=== PATIENT | female | born 1990 | race Caucasian/White ===

== ENCOUNTER → 2016-04-20 | Outpatient (CLI) | payer OTHER, MEDICAID | LOC: OD 12:13 | PROVIDERS: ATTEND Midwife | DX: Z36 Encounter for antenatal screening of mother (principal) | CPT/HCPCS: 36415; 84163; 84702; 86336 ==

== ENCOUNTER 2016-06-10 19:24 | Emergency (ER) | payer OTHER, MEDICAID ==
--- NOTE | 2016-06-10 19:43 | ER Document Report ---
ED Medical Screen (RME) - General Stated Complaint: PAINFUL URINATION Time seen by provider: 19:41 Mode of Arrival: Ambulatory Information source: Patient Notes: 26-year-old female presents to ED for burning and pain and itching with urination. Burning started today itching for 3 days. She is 20 weeks 1 day . TRAVEL OUTSIDE OF THE [place] IN LAST 30 DAYS: No - Related Data Allergies/Adverse Reactions: No Known Allergies Allergy (Verified 01/06/15 14:11) Past Medical History Pulmonary Medical History: Reports: Hx Asthma - only in childhood - Immunizations Immunizations up to date: Yes Hx Diphtheria, Pertussis, Tetanus Vaccination: Yes Physical Exam - Vital signs Vitals: Temp Pulse Resp BP Pulse Ox 98.1 F 85 16 128/58 H 100 06/10/16 19:32 06/10/16 19:32 06/10/16 19:32 06/10/16 19:32 06/10/16 19:32 Course - Vital Signs Vital signs: Temp Pulse Resp BP Pulse Ox 98.1 F 85 16 128/58 H 100 06/10/16 19:32 06/10/16 19:32 06/10/16 19:32 06/10/16 19:32 06/10/16 19:32
[2016-06-10 20:24] LABS: APPEARANCE,URINE CLOUDY; BILIRUBIN,URINE NEGATIVE (NEGATIVE); GLUCOSE, URINE NEGATIVE (NEGATIVE); KETONES,URINE NEGATIVE (NEGATIVE); LEUKOCYTE ESTERASE,URINE LARGE (NEGATIVE); NITRITE,URINE NEGATIVE (NEGATIVE); PROTEIN,URINE 30 mg/dL (NEGATIVE)
[2016-06-10] MEDS ORDERED: CEPHALEXIN 500 MG CAPSULE PO ONE (21:29)
[2016-06-10] MEDS ORDERED: FLUCONAZOLE 100 MG TABLET PO ONE (21:29)
[2016-06-10] MEDS ORDERED: PHENAZOPYRIDINE HCL 200 MG TABLET PO ONE (21:30)
--- NOTE | 2016-06-10 21:32 | ER Document Report ---
ED GI/ - General Chief Complaint: Pain With Urination Stated Complaint: PAINFUL URINATION Time seen by provider: 21:30 Mode of Arrival: Ambulatory Notes: Patient is a 26-year-old female, at 20 weeks gestation, that comes emergency department for chief complaint of 3 days of painful urination. She states she is also started getting infection and has started to use Monistat but it did not seem to help. She denies any vaginal discharge, denies pelvic pain or cramping, she states she is feeling baby moving. Patient denies any vaginal bleeding. She denies nausea or vomiting, fever or chills. TRAVEL OUTSIDE OF THE [place] IN LAST 30 DAYS: No - Related Data Allergies/Adverse Reactions: No Known Allergies Allergy (Verified 06/10/16 19:41) Past Medical History - General Information source: Patient - Social History Smoking Status: Never Smoker Chew tobacco use (# tins/day): No Frequency of alcohol use: None Drug Abuse: None Lives with: Family Family History: None, Reviewed & Not Pertinent Patient has suicidal ideation: No Patient has homicidal ideation: No Pulmonary Medical History: Reports: Hx Asthma - only in childhood Renal/ Medical History: Denies: Hx Peritoneal Dialysis Surgical Hx: Negative - Immunizations Immunizations up to date: Yes Hx Diphtheria, Pertussis, Tetanus Vaccination: Yes Review of Systems - Review of Systems Constitutional: No symptoms reported EENT: No symptoms reported Cardiovascular: No symptoms reported Respiratory: No symptoms reported Gastrointestinal: No symptoms reported Genitourinary: See HPI Female Genitourinary: See HPI Musculoskeletal: No symptoms reported Skin: No symptoms reported Hematologic/Lymphatic: No symptoms reported Neurological/Psychological: No symptoms reported Physical Exam - Vital signs Vitals: Temp Pulse Resp BP Pulse Ox 98.1 F 85 16 128/58 H 100 06/10/16 19:32 06/10/16 19:32 06/10/16 19:32 06/10/16 19:32 06/10/16 19:32 Interpretation: Normal - General General appearance: Appears well, Alert In distress: None - HEENT Head: Normocephalic, Atraumatic Eyes: Normal Conjunctiva: Normal Extraocular movements intact: Yes Eyelashes: Normal Pupils: PERRL Sinus: Normal Nasal: Normal Mouth/Lips: Normal Mucous membranes: Normal Pharynx: Normal Neck: Normal - Respiratory Respiratory status: No respiratory distress Chest status: Nontender Breath sounds: Normal Chest palpation: Normal - Cardiovascular Rhythm: Regular Heart sounds: Normal auscultation Murmur: No - Abdominal Inspection: Normal Distension: No distension Bowel sounds: Normal Tenderness: Nontender - Completely soft abdomen. No: Tender Organomegaly: No organomegaly - Back Back: Normal, Nontender. No: Tender - Extremities General upper extremity: Normal inspection, Nontender, Normal color, Normal ROM , Normal temperature General lower extremity: Normal inspection, Nontender, Normal color, Normal ROM , Normal temperature, Normal weight bearing. No: Celso's sign - Neurological Neuro grossly intact: Yes Cognition: Normal Orientation: AAOx4 [place] Coma Scale Eye Opening: Spontaneous Cristiano Coma Scale Verbal: Oriented Cristiano Coma Scale Motor: Obeys Commands [place] Coma Scale Total: 15 Speech: Normal Motor strength normal: LUE, RUE, LLE, RLE Sensory: Normal - Psychological Associated symptoms: Normal affect, Normal mood - Skin Skin Temperature: Warm Skin Moisture: Dry Skin Color: Normal Course - Re-evaluation Re-evalutation: Patient declines a pelvic examination, requests treatment for yeast infection, also reports dysuria, urine is somewhat contaminated but also suggestive of urinary tract infection. Urine cultured. Placing on Keflex, gave single dose of Diflucan, gave single dose of Pyridium, instructed to follow-up with REPRODUCTION ORDER PROCESSOR and return for any concerning or worsening symptoms including flank pain, vomiting, fever, etc. Patient states satisfaction and agreement. - Vital Signs Vital signs: Temp Pulse Resp BP Pulse Ox 97.4 F 68 16 112/68 99 06/10/16 22:04 06/10/16 22:04 06/10/16 22:04 06/10/16 22:04 06/10/16 22:04 - Laboratory Laboratory results interpreted by md: 06/10/16 19:45 Urine Protein 30 H Urine Blood SMALL H Urine Urobilinogen 2.0 H Ur Leukocyte Esterase LARGE H Discharge - Discharge Clinical Impression: Dysuria, Vaginal irritation Condition: Stable Disposition: HOME, SELF-CARE Additional Instructions: You have been treated for yeast infection, urinalysis also is consistent with a urinary tract infection, take Keflex as directed. Follow-up with your primary care. Return to emergency department for any concerning or worsening symptoms. Prescriptions: Cephalexin Monohydrate [Keflex 500 mg Capsule] 500 mg PO BID #10 capsule Referrals: ADRIEN HASSAN MD [Primary Care Provider] - Follow up as needed
[2016-06-10 22:05] VITALS: BP 112/68
== END 2016-06-10 22:04 | disposition home or self-care (01) ==
LOC: ER 19:24
DX: O26.892 Other specified pregnancy related conditions, second trimester (principal); R30.0 Dysuria; N89.8 Other specified noninflammatory disorders of vagina; Z3A.20 20 weeks gestation of pregnancy
CPT/HCPCS: 99283; 87086; 81001; J3490

== ENCOUNTER 2016-06-13 15:36 | Emergency (ER) | payer OTHER, MEDICAID ==
[2016-06-13 15:41] VITALS: BP 129/77
--- NOTE | 2016-06-13 15:43 | ER Document Report ---
ED Medical Screen (RME) - General Stated Complaint: VAGINAL DISCOMFORT Time seen by provider: 15:41 Mode of Arrival: Ambulatory Information source: Patient Notes: 26-year-old febrile presents to ED for vaginal discharge vaginal discomfort and urinary symptoms since last Saturday. He states she was seen here on Saturday. She states she was told that we will be doing a pelvic been one was not done. She is 20 weeks 4 days . 3 para 2 I have greeted and performed a rapid initial assessment of this patient. A comprehensive ED assessment and evaluation of the patient, analysis of test results and completion of medical decision making process will be conducted by an additional ED providers. TRAVEL OUTSIDE OF THE [place] IN LAST 30 DAYS: No - Related Data Allergies/Adverse Reactions: No Known Allergies Allergy (Verified 06/10/16 19:41) Past Medical History Pulmonary Medical History: Reports: Hx Asthma - only in childhood Renal/ Medical History: Denies: Hx Peritoneal Dialysis - Immunizations Immunizations up to date: Yes Hx Diphtheria, Pertussis, Tetanus Vaccination: Yes Physical Exam - Vital signs Vitals: Temp Pulse Resp BP Pulse Ox 98.2 F 99 20 129/77 H 97 06/13/16 15:40 06/13/16 15:40 06/13/16 15:40 06/13/16 15:40 06/13/16 15:40 Course - Vital Signs Vital signs: Temp Pulse Resp BP Pulse Ox 98.2 F 99 20 129/77 H 97 06/13/16 15:40 06/13/16 15:40 06/13/16 15:40 06/13/16 15:40 06/13/16 15:40
[2016-06-13 16:12] LABS: APPEARANCE,URINE CLEAR; BILIRUBIN,URINE NEGATIVE (NEGATIVE); GLUCOSE, URINE NEGATIVE (NEGATIVE); KETONES,URINE NEGATIVE (NEGATIVE); LEUKOCYTE ESTERASE,URINE TRACE (NEGATIVE); NITRITE,URINE POSITIVE (NEGATIVE); PROTEIN,URINE NEGATIVE (NEGATIVE); URINE SPECIFIC GRAVITY 1.012
--- NOTE | 2016-06-13 17:27 | ER Document Report ---
ED GI/ - General Chief Complaint: Urinary Frequency Stated Complaint: VAGINAL DISCOMFORT Time seen by provider: 17:23 Mode of Arrival: Ambulatory Information source: Patient Notes: 26-year-old female presents to ED for vaginal discharge with discomfort and urinary symptoms since Saturday. She states she was seen on Saturday she was told she was going get a pelvic but did not get one. She is 20 weeks and 4 days 3 para 2. TRAVEL OUTSIDE OF THE [place] IN LAST 30 DAYS: No - HPI Patient complains to provider of: Pelvic pain, , Vaginal discharge, Other - Frequency urgency and burning with urination Onset: Last week - Saturday Timing/Duration: Persistent Quality of pain: Burning, Pressure Severity at maximum: Moderate Severity in ED: Moderate Pain Level: 4 Location: Vaginal Vaginal bleeding (Compared to normal period): None Menstrual period history: : 3 Para: 2 Associated symptoms: Urinary frequency, Urinary urgency, Vaginal discharge, Other - Exacerbated by: Other - Urination Relieved by: Denies Similar symptoms previously: Yes Recently seen / treated by doctor: Yes - Related Data Allergies/Adverse Reactions: No Known Allergies Allergy (Verified 06/10/16 19:41) Past Medical History - General Information source: Patient - Social History Smoking Status: Never Smoker Cigarette use (# per day): No Chew tobacco use (# tins/day): No Smoking Education Provided: No Frequency of alcohol use: None Drug Abuse: None Occupation: [employer] Lives with: Family Family History: Arthritis, DM, Hyperlipidemia, Hypertension, Malignancy Patient has suicidal ideation: No Patient has homicidal ideation: No - Past Medical History Cardiac Medical History: Reports: None Pulmonary Medical History: Reports: Hx Asthma - only in childhood EENT Medical History: Reports: None Neurological Medical History: Reports: None Endocrine Medical History: Reports: None Renal/ Medical History: Reports: None Malignancy Medical History: Reports: None GI Medical History: Reports: None Musculoskeltal Medical History: Reports None Skin Medical History: Reports None Psychiatric Medical History: Reports: None Traumatic Medical History: Reports: None Infectious Medical History: Reports: None Surgical Hx: Negative Past Surgical History: Reports: None - Immunizations Immunizations up to date: Yes Hx Diphtheria, Pertussis, Tetanus Vaccination: Yes Review of Systems - Review of Systems Constitutional: No symptoms reported EENT: No symptoms reported Cardiovascular: No symptoms reported Respiratory: No symptoms reported Gastrointestinal: No symptoms reported Genitourinary: Frequency, Pain, Urgency Female Genitourinary: Vaginal discharge Musculoskeletal: No symptoms reported Skin: No symptoms reported Hematologic/Lymphatic: No symptoms reported Neurological/Psychological: No symptoms reported -: Yes All other systems reviewed and negative Physical Exam - Vital signs Vitals: Temp Pulse Resp BP Pulse Ox 98.2 F 99 20 129/77 H 97 06/13/16 15:40 06/13/16 15:40 06/13/16 15:40 06/13/16 15:40 06/13/16 15:40 Interpretation: Normal - General General appearance: Appears well, Alert - HEENT Head: Normocephalic, Atraumatic Eyes: Normal Pupils: PERRL - Respiratory Respiratory status: No respiratory distress Chest status: Nontender Breath sounds: Normal Chest palpation: Normal - Cardiovascular Rhythm: Regular Heart sounds: Normal auscultation Murmur: No - Abdominal Inspection: Normal Distension: No distension Bowel sounds: Normal Tenderness: Nontender Organomegaly: No organomegaly - Genitourinary External exam: Vesicles Speculum exam: Vaginal discharge - Yellowish-white Vaginal bleeding: None Bimanuel exam: Normal - Back Back: Normal, Nontender - Extremities General upper extremity: Normal inspection, Nontender, Normal color, Normal ROM , Normal temperature General lower extremity: Normal inspection, Nontender, Normal color, Normal ROM , Normal temperature, Normal weight bearing. No: Celso's sign - Neurological Neuro grossly intact: Yes Cognition: Normal Orientation: AAOx4 Cristiano Coma Scale Eye Opening: Spontaneous Crist[place] Coma Scale Verbal: Oriented [place] Coma Scale Motor: Obeys Commands Cristiano Coma Scale Total: 15 Speech: Normal Motor strength normal: LUE, RUE, LLE, RLE Sensory: Normal - Psychological Associated symptoms: Normal affect, Normal mood - Skin Skin Temperature: Warm Skin Moisture: Dry Skin Color: Normal Course - Re-evaluation Re-evalutation: 06/13/16 18:[address] Malcolm for this patient's genital herpes, UTI, bacterial vaginosis , and vaginal yeast infection. Patient will be treated with Rocephin and azithromycin for possible GC chlamydia, Flagyl for bacterial vaginosis, Macrobid for UTI, and acyclovir for genital herpes. Spoke with Dr. Au, OB/ CHIEF DRAFTER and he stated that she treat her with Terazol 7 for her vaginal candidiasis. - Vital Signs Vital signs: Temp Pulse Resp BP Pulse Ox 98.2 F 99 20 129/77 H 97 06/13/16 15:40 06/13/16 15:40 06/13/16 15:40 06/13/16 15:40 06/13/16 15:40 - Laboratory Laboratory results interpreted by me: 06/13/16 15:50 Urine Blood MODERATE H Urine Nitrite POSITIVE H Urine Urobilinogen 4.0 H Ur Leukocyte Esterase TRACE H Discharge - Discharge Clinical Impression: Genital herpes affecting in second trimester, Bacterial vaginosis, UTI (urinary tract infection) in in second trimester, Vagina, candidiasis Condition: Stable Disposition: HOME, SELF-CARE Additional Instructions: URINARY TRACT INFECTION: Your evaluation indicates that you have a urinary tract infection. This is due to germs growing in the bladder. This is a common problem. This infection usually responds quickly to antibiotics. Your antibiotic should be taken exactly as prescribed. Drink plenty of fluids -- three to four quarts a day. Occasionally, a bladder anesthetic will be prescribed to help stop the feeling of urgency until the antibiotic has a chance to clear the infection. This may cause your urine to be dark orange. Certain urine infections require a culture. If the doctor obtained a culture, the results will be back in two days. You should call to see if a change in treatment is needed. A repeat urinalysis after you finish treatment is often recommended. The physician will let you know if further testing is required. Call the doctor if you develop fever, chills, flank pain, inability to urinate, or blood in the urine. VAGINITIS: Your exam shows that you have vaginitis, a vaginal infection. The infection can be caused by a many different organisms, including trichomonas or Gardnerella. The usual symptoms are vaginal irritation and discharge. The treatment is usually antibiotics such as Flagyl. Laboratory tests can determine which germ is responsible. Use the medication as prescribed. Because this infection can be transmitted sexually, your sexual partner may need to be checked and treated also. If your physician has not discussed this with you, please check before resuming sexual relations. If a culture shows gonorrhea or chlamydia, the infection must be reported to the health department. Call the doctor if you develop pelvic pain, fever, or problems with urination, or if you don't improve as expected. VAGINOSIS, BACTERIAL: Your exam shows you have bacterial vaginosis. This condition is due to an overgrowth of bacteria in the vagina. Symptoms may include vaginal itching or pain, a smelly discharge, and sometimes burning with urination. Normally this is not transmitted by sexual contact. Vaginosis can be treated with oral or topical antibiotics. Metronidazole ( Flagyl) pills are usually effective. Topical vaginal creams include Cleocin and Metro-Gel. You should avoid sexual contact until your symptoms are all better. Call the doctor if you develop pelvic pain, fever, or problems with urination, or if you don't improve as expected. VAGINAL YEAST INFECTION: You have evidence of a yeast infection -- called "mateus." A vaginal yeast infection often causes itching and discharge. While not dangerous, it can be very unpleasant. A yeast infection often follows the use of powerful antibiotics. It is more likely to occur in diabetics. The treatment now is usually a single pill of Diflucan, but also an antifungal cream or suppository may be used for a few days. You do not need to avoid sexual intercourse. Recurrences are common. You can make a recurrence less likely by wearing cotton underwear and avoiding tight clothing. For mild recurrences, you can try [id number] creams or suppositories that are made specifically for yeast. If the symptoms do not resolve, you should follow up for re-examination. Sometimes treatment of the sexual partner is necessary if infections are recurrent. Genital Herpes Your exam suggests that you have a herpes infection. A culture can confirm the diagnosis. Herpes is caused by a virus, and can be transmitted sexually. After the initial infection has healed, the virus often erupts at the same location from time to time. Herpes can be treated with anti-viral medication. The medicine can be used as pills or ointment. It's most effective if started with the first symptoms of the attack. It is not a "cure" -- it simply shortens the length of the illness. If this is not your first attack, the medicine may not help you. In the female, herpes can infect the baby as it passes through the canal, causing a life-threatening disease. You should inform the wharf tally clerk that you've had herpes should you (or your spouse) become . Sexual contact should be avoided any time the sores are present, but the virus may be contagious even at other times. The use of condoms may help prevent infection in your partner. METRONIDAZOLE: Metronidazole (Flagyl) has been prescribed. This medication is used to kill a type of bacteria called anaerobes, and protozoan parasites such as trichomonas and Giardia. Flagyl often causes a metallic taste in the mouth and mild nausea. Do not use alcohol in any form with Flagyl (including alcohol in medication elixirs). Flagyl interacts with alcohol to cause flushing, palpitations, headache, stomach cramps, and vomiting. Do not use Flagyl if you are taking Antabuse (disulfiram). Call the doctor at once if you develop rash, shortness of breath, itching, or lightheadedness. NITROFURANTOIN (MACRODANTIN, MACROBID): You have received a prescription for nitrofurantoin (Macrodantin). This antibiotic is used for urinary tract infections. Women who are or nursing should notify the physician before taking this medicine. If you have ever had a problem caused by this medication in the past, be sure the physician is aware of it. Common side effects of this medicine include nausea, vomiting, or decreased appetite. Notify your physician if these side effects become severe. Immediately stop this medicine and call the physician if you develop cough , shortness of breath, chest pain, weakness, jaundice (yellow color of the skin and whites of the eyes), or a skin rash. Acyclovir Acyclovir (Zovirax) is used to treat infections caused by the Herpes family of viruses. It's available as capsules or ointment. Zovirax is most effective if started at the first sign of the viral outbreak. It can decrease the severity and duration of symptoms. However, it doesn't eliminate the virus from the body completely. If you're prone to repeated outbreaks of herpes, you'll continue to have attacks. Apply ointment with a disposable glove or finger-cot to avoid spreading the virus with your finger. If pills have been prescribed, take them for the full recommended course. Occasionally, mild nausea or headaches may occur. Call the doctor if you develop wheezing, itching, rash, shortness of breath , or lightheadedness. FOLLOW-UP CARE: If you have been referred to a physician for follow-up care, call the physician s office for an appointment as you were instructed or within the next two days. If you experience worsening or a significant change in your symptoms, notify the physician immediately or return to the Emergency Department at any time for re-evaluation. Please call your SEO EXPERT in the morning and inform her that you have a gentle herpes bacterial vaginosis and UTI in the vaginal yeast infection. I will be put you on Flagyl and Macrobid and acyclovir in your SEO EXPERT will need to treat your yeast infection sometime next week when the others are all cleared up. Prescriptions: Acyclovir [Acyclovir 400 mg Tablet] 400 mg PO TID #30 tablet Metronidazole [Flagyl 500 mg Tablet] 500 mg PO BID #20 tablet Nitrofurantoin/Nitrofuran Mac [Macrobid 100 mg Capsule] 1 tab PO BID #20 capsule Terconazole [Terazol 7] 45 gm VG DAILY 7 Days Forms: Return to Work Referrals: [facility] [Provider Group] - Follow up as needed
[2016-06-13 17:37] LABS: CHLAM PCR NOT DETECTED (NOT DETECT)
[2016-06-13] MEDS ORDERED: AZITHROMYCIN 250 MG TABLET PO ONE (17:43)
[2016-06-13] MEDS ORDERED: LIDOCAINE 1% INJ-PF (10 MG/ML) 30 ML SDV INJ ONE (17:43)
[2016-06-13] MEDS ORDERED: ACYCLOVIR 200 MG CAPSULE PO ONE (17:43)
[2016-06-13] MEDS ORDERED: CEFTRIAXONE INJ 250 MG VIAL IM ONE (17:43)
[2016-06-13] MEDS ORDERED: METRONIDAZOLE 500 MG TABLET PO ONE (17:43)
[2016-06-13] MEDS ORDERED: NITROFURANTOIN MONOHYD/M-CRYST 100 MG CAPSULE PO ONE (17:43)
== END 2016-06-13 18:37 | disposition home or self-care (01) ==
LOC: ER 15:36
DX: O98.312 Other infections with a predominantly sexual mode of transmission complicating pregnancy, second trimester (principal); A60.04 Herpesviral vulvovaginitis; O23.592 Infection of other part of genital tract in pregnancy, second trimester; B96.89 Other specified bacterial agents as the cause of diseases classified elsewhere; O23.42 Unspecified infection of urinary tract in pregnancy, second trimester; O98.812 Other maternal infectious and parasitic diseases complicating pregnancy, second trimester; B37.3 Candidiasis of vulva and vagina; Z3A.20 20 weeks gestation of pregnancy
CPT/HCPCS: 99283; 96372; 87086; 87210; 81001; 87491; 87591; J3490; J0696; J8499

== ENCOUNTER → 2016-08-03 | Outpatient (CLI) | payer OTHER, MEDICAID ==
[2016-08-03 13:24] LABS: ADD HIVPANEL? NO; HIV (1 AND 2) ANTIBODY NEGATIVE (NEGATIVE)
== END ==
LOC: OD 11:32
PROVIDERS: ATTEND Specialist
DX: Z34.83 Encounter for supervision of other normal pregnancy, third trimester (principal); Z11.59 Encounter for screening for other viral diseases; Z11.3 Encounter for screening for infections with a predominantly sexual mode of transmission; Z11.4 Encounter for screening for human immunodeficiency virus [HIV]
CPT/HCPCS: 36415; 86592; 86701

== ENCOUNTER 2016-10-24 11:26 | Inpatient (IN) | payer OTHER, MEDICAID ==
[2016-10-24] MEDS ORDERED: OXYTOCIN/NORMAL SALINE 1,000 ML IV PRN ×2 (11:43→18:12)
[2016-10-24] MEDS ORDERED: RINGERS SOLUTION,LACTATED 300 ML IV ONE (11:43)
[2016-10-24 11:57] LABS: ABSOLUTE EOSINOPHILS # (AUTO) 0.1 10^3/uL (0.0-0.6); ABSOLUTE LYMPHOCYTES (AUTO) 2.1 10^3/uL (0.5-4.7); ABSOLUTE MONOCYTES (AUTO) 0.3 10^3/uL (0.1-1.4); BASOPHILS % (AUTO) 0.5 % (0-2); EOSINOPHILS % (AUTO) 0.6 % (0-6); HEMATOCRIT 35.2 % (36.0-47.0); HEMOGLOBIN 11.8 g/dL (12.0-15.5); HGB HCT DIFFERENCE 0.2; LYMPHOCYTES % (AUTO) 22.1 % (13-45); MEAN CORPUSCULAR HEMOGLOBIN 28.7 pg (27.0-33.4); MEAN CORPUSCULAR HGB CONC 33.6 g/dL (32.0-36.0); MEAN CORPUSCULAR VOLUME 85 fl (80-97); MONOCYTES % (AUTO) 3.4 % (3-13); RED BLOOD COUNT 4.12 10^6/uL (3.72-5.28); RED CELL DISTRIBUTION WIDTH 13.2 % (11.5-14.0); SEGMENTED NEUTROPHILS % (AUTO) 73.4 % (42-78); WHITE BLOOD COUNT 9.6 10^3/uL (4.0-10.5)
[2016-10-24] MEDS ORDERED: PENICILLIN G-K 5 MILLION UNIT VIAL ONE ×3 (12:00→16:28)
[2016-10-24] MEDS ORDERED: MISOPROSTOL 0.2 MG TABLET ONE ×2 (12:01→19:38)
[2016-10-24] MEDS ORDERED: LIDOCAINE 1% INJ-PF (10 MG/ML) 30 ML SDV ONE (12:02)
[2016-10-24] MEDS ORDERED: OXYTOCIN/NORMAL SALINE 20 UNIT/1,000 ML RTUINJ ONE ×2 (12:02→22:59)
[2016-10-24 13:55] LABS: APPEARANCE,URINE CLOUDY; BILIRUBIN,URINE NEGATIVE (NEGATIVE); GLUCOSE, URINE NEGATIVE (NEGATIVE); KETONES,URINE NEGATIVE (NEGATIVE); LEUKOCYTE ESTERASE,URINE LARGE (NEGATIVE); NITRITE,URINE POSITIVE (NEGATIVE); PROTEIN,URINE NEGATIVE (NEGATIVE); URINE SPECIFIC GRAVITY 1.011; UROBILINOGEN,URINE NEGATIVE mg/dL (<2.0)
[2016-10-24 14:13] LABS: URINE BARBITURATES SCREEN NEGATIVE; URINE METHADONE SCREEN NEGATIVE; URINE OPIATES LOW NEGATIVE; URINE PHENCYCLIDINE SCREEN NEGATIVE
--- NOTE | 2016-10-24 14:19 | L&D Progress Notes ---
PROGRESS NOTES Datetime Report Generated by CPN: 10/24/2016 14:19 PROGRESS NOTE Impression: Normal Progression of Labor Procedures: Artificial ROM Plan: Continue Present Management; Induction Informed Consent Obtained: Vaginal Delivery Vital Signs : Reviewed Comment: s/p dose #1 pcn AROM, clear VAGINAL EXAM Dilatation: 3 Dilatation: 3 Effacement: 60 Effacement: 60 Station: -1 Station: -1 Contractions: every 2 min Contractions: irregular MEMBRANES Membranes: Ruptured Membranes: Ruptured Amniotic Fluid Color: Clear FETUS A FHR - Baseline: 135 Monitoring: External US Variability: Moderate 6-25bpm Accelerations: 15X15 Decelerations: None FHR Category: Category I Presentation: Vertex SIGNATURE SIGNATURE: [id number] Assignment: Kenyetta Boswell MD Signature: with User ID: [email or web address] : with User ID: [email or web address]
[2016-10-24] MEDS ORDERED: FENTANYL/BUPIVACAINE/NS/PF 200 MCG/100 ML RTUINJ EPI ONE (14:20)
[2016-10-24] MEDS ORDERED: EPHEDRINE SULFATE INJ 50 MG/1 ML AMPULE ONE (14:20)
[2016-10-24] MEDS ORDERED: BUPIVACAINE HCL 0.25 % INJ/PF (2.5 MG/1 ML) 30 ML VIAL ONE (14:20)
[2016-10-24] MEDS ORDERED: BENZOIN/ALOE VERA/STORAX/TOLU TINCTURE 60 ML TP PRN (15:09)
[2016-10-24] MEDS ORDERED: FENTANYL/BUPIVACAINE/NS/PF 100 ML EPI PRN (15:09)
[2016-10-24] MEDS ORDERED: BUPIVACAINE HCL 0.25 % INJ/PF (2.5 MG/1 ML) 30 ML VIAL INFIL ONE (15:09)
[2016-10-24] MEDS ORDERED: EPHEDRINE SULFATE INJ 50 MG/1 ML AMPULE IV PRN (15:09)
[2016-10-24] MEDS ORDERED: DIPHENHYDRAMINE HCL 50 MG/ML VIAL IV PRN (15:09)
[2016-10-24] MEDS: RINGERS SOLUTION,LACTATED 1,000 ML IV PRN ×2 (15:13→15:15)
--- NOTE | 2016-10-24 16:53 | L&D Progress Notes ---
PROGRESS NOTES Datetime Report Generated by CPN: 10/24/2016 16:52 PROGRESS NOTE Impression: Normal Progression of Labor; Reassuring Heart Rate Procedures: Sterile Vag Exam Plan: Continue Present Management; Induction Informed Consent Obtained: Vaginal Delivery Vital Signs : Reviewed Comment: Pt comfortable with epiduraal Pitocin @ 10 m s/p 2 doses pcn Anticipate VAGINAL EXAM Dilatation: 7 Effacement: 80 Station: -1 Contractions: 2-4 MEMBRANES Membranes: Ruptured Amniotic Fluid Color: Clear FETUS A FHR - Baseline: 125 Monitoring: External US Variability: Moderate 6-25bpm Accelerations: 15X15 Decelerations: Variable FHR Category: Category I FETUS C SIGNATURE: [id number] Assignment: Kenyetta Boswell MD Signature: with User ID: [email or web address] : with User ID: [email or web address]
[2016-10-24] MEDS ORDERED: DIBUCAINE 1% OINTMENT 28 GM TP PRN (18:12)
[2016-10-24] MEDS ORDERED: ACETAMINOPHEN 650 MG SUPP.RECT PR PRN (18:12)
[2016-10-24] MEDS ORDERED: NA PHOS,M-B/NA PHOS,DI-BA (ADULT) 133 ML ENEMA PR PRN (18:12)
[2016-10-24] MEDS ORDERED: PROMETHAZINE HCL INJ 25 MG/1 ML VIAL IV PRN (18:12)
[2016-10-24] MEDS ORDERED: BENZOCAINE/MENTHOL AEROSOL SPRAY 56 ML TOP PRN (18:12)
[2016-10-24] MEDS ORDERED: PROMETHAZINE HCL 25 MG TABLET PO PRN (18:12)
[2016-10-24] MEDS ORDERED: MEASLES,MUMPS&RUBELLA VACC/PF 0.5 ML VIAL SUBCUT PRN (18:12)
[2016-10-24] MEDS ORDERED: ZOLPIDEM TARTRATE 5 MG TABLET PO PRN (18:12)
[2016-10-24] MEDS ORDERED: PSEUDOEPHEDRINE HCL 30 MG TABLET PO PRN (18:12)
[2016-10-24] MEDS ORDERED: GLYCERIN/WITCH HAZEL LEAF 1 EACH MED..PAD TP PRN (18:12)
[2016-10-24] MEDS ORDERED: PROMETHAZINE HCL 25 MG SUPP.RECT PR PRN (18:12)
[2016-10-24] MEDS ORDERED: DIPH/PERTUSS(ACELL)/TETANUS VAC/PF 0.5 ML SYR (>=10YO) IM PRN (18:12)
[2016-10-24] MEDS ORDERED: DIPHENHYDRAMINE HCL 25 MG CAPSULE PO PRN (18:12)
[2016-10-24] MEDS ORDERED: MAGNESIUM HYDROXIDE SUSP 30 ML UDCUP PO PRN (18:12)
[2016-10-24] MEDS ORDERED: ACETAMINOPHEN WITH CODEINE #3 TABLET PO PRN (18:12)
--- NOTE | 2016-10-24 20:05 | Delivery Summary ---
Del Sum A-C Datetime Report Generated by CPN: 10/24/2016 20:05 DELIVERY PERSONNEL DELIVERY PERSONNEL: [id number] Delivery Doctor:: Kenyetta Boswell MD Labor and Delivery Nurse:: Shannon Cagle RNfinished yarn examiner Nurse:: RANDOLPH Samano Nursery Nurse:: Amy Pulido RN Brush Operator/FOUNDATION RELATIONS DIRECTOR: Diego Ramey CST Additional Personnel: : RANDOLPH Johnson MATERNAL INFORMATION Delivery Anesthesia: Epidural Medications After Delivery: Pitocin Bolus-Please Comment Meds After Delivery Comment: Pitocin 20 units in 1000 ml NSS open for bolus Estimated Blood Loss (ml): 250 Maternal Complications: None Provider Comments: VMI delivered in CATALINO presentation with compound right hand. Shoulders and body delivered w/o difficulty. Cord doubly clamped and infant to maternal abdomen. Placenta delivered intact spontaneously. FF at U. 1st degree laceration repaired in usual fahsion. Good hemostasis. Mother and baby stable upon provider leaving the room. Apgars 9/9. weight pending. LABOR SUMMARY EDC: 10/27/2016 00:00 No. Babies in Womb: 1 Attempted: No Labor Anesthesia: Epidural LABOR INFORMATION Reason for Induction: Other Reason for Induction- Other: elective maternal anxiety Onset of Labor: 10/24/2016 14:00 Complete Dilatation: 10/24/2016 17:45 Oxytocin: Induction Group B Beta Strep: positive Antibiotics # of Doses: 2 Antibiotics Time of Last Dose: 1615 Name of Antibiotic Given: PCN G Steroids Given: None Reason Steroids Not Administered: Not Applicable MEMBRANES Membranes Rupture Method: Artificial Rupture of Membranes: 10/24/2016 14:13 Length of Rupture (hr): 3.62 Amniotic Fluid Color: Clear Amniotic Fluid Amount: Large Amniotic Fluid Odor: Normal STAGES OF LABOR Stage 1 hr: 3 Stage 1 min: 45 Stage 2 hr: 0 Stage 2 min: 5 Stage 3 hr: 0 Stage 3 min: 3 Total Time in Labor hr: 3 Total Time in Labor min: 53 VAGINAL DELIVERY Episiotomy: None Laceration Extension: First Degree Laceration Type: Perineal Laceration Repair: Yes Laceration Repair Note: 1st degree laceration repaired in usual fashion. Good Hemostasis. Sponge Count Correct: N/A Sharps Count Correct: N/A CSECTION DELIVERY Primary Indication: N/A Secondary Indication: N/A CSection Incidence: N/A Labor: N/A Elective: N/A CSection Incision: N/A BABY A INFORMATION Infant Delivery Date/Time: 10/24/2016 17:50 Method of Delivery: Vaginal Born in Route : No : N/A Forceps: N/A Vacuum Extraction: N/A Shoulder Dystocia : No PRESENTATION/POSITION BABY A Presentation: Cephalic Cephalic Presentation: Vertex Vertex Position: Right Occipital Anterior Breech Presentation: N/A PLACENTA INFORMATION BABY A Placenta Delivery Time : 10/24/2016 17:53 Placenta Method of Delivery: Spontaneous Placenta Status: Delivered SCORES BABY A Heart Rate 1 min: >100 bpm Resp Effort 1 min: Good Cry Reflex Irritability 1 min: Cough or Sneeze or Pulls Away Muscle Tone 1 min: Active Motion Color 1 min: Body Esto, Extremities Blue Resuscitation Effort 1 min: Tactile Stimulation SCORE 1 MIN: 9 Heart Rate 5 min: >100 bpm Resp Effort 5 min: Good Cry Reflex Irritability 5 min: Cough or Sneeze or Pulls Away Muscle Tone 5 min: Active Motion Color 5 min: Body Esto, Extremities Blue Resuscitation Effort 5 min: N/A SCORE 5 MIN: 9 Resuscitation Effort 10 min: N/A INFORMATION BABY A Gestational Age at Delivery: 38.4 Gestational Status: Early Term- 37- 38.6 Weeks Outcome : Liveborn Infant Condition : Stable Infant Sex: Male IDENTIFICATION BABY A Infant Verification Date/Time: 10/24/2016 18:07 ID Band Number: [id number] Mother's Name Verified: Yes RN Verifying : R. Marianne, RN/S. Camp, RNC WEIGHT/LENGTH BABY A Length (in): 21.50 Length (cm): 54.61 CORD INFORMATION BABY A No. Cord Vessels: 3 Nuchal Cord : N/A Cord Blood Taken: Yes-For Storage (Mom's Blood type +) Infant Suction: Mouth; Nose ASSESSMENT BABY A Infant Complications: None Physical Findings at Delivery: Within Normal Limits Respirations: Appears Normal Skin to Skin: Yes Skin to Skin Time (min): 60 Slumber Room Attendant/ALS Called : No Infant Care By: D Bellavance RNC Transferred To: Remains with Mother BABY B INFORMATION : N/A SIGNATURES Signature: with User ID: [email or web address]
--- NOTE | 2016-10-24 20:18 | Admission Physical ---
Datetime Report Generated by CPN: 10/24/2016 20:17 CURRENT ADMISSION Hx Assessment: The History has been Reviewed and is Current Chief Complaint: Scheduled Induction of Labor Indication for Induction: Other Indication for Induction- Other: Maternal mental health Admit Plan: Admit to Unit; Initiate Labor Induction Protocol ALLERGIES Medication Allergies: No Medication Allergies: lavender (Lavandula angustifolia) (10/24/2016) Medication Allergies: No Known Allergies (06/10/2016) Latex: No Latex Allergies Food Allergies: lavender Environmental Allergies: lavender OBSTETRICAL HISTORY EDC: 10/27/2016 00:00 : 3 Para: 2 Term: 2 : 0 SAB: 0 IAB: 0 Ectopic: 0 Livin Cesareans: 0 VBACs: 0 Multiple Births: 0 Gestational Diabetes: No Rh Sensitization: No Incompetent Cervix: No DEEPA: No Infertility: No ART Treatment: No Uterine Anomaly: No IUGR: No Hx Previous C/S: No Macrosomia: No Hx Loss/Stillborn: No PIH: No Hx : No Placenta Previa/Abruption: No Depression/PP Depression: Yes PTL/PROM: No Post Hemorrhage: No Current Procedures: Ultrasound Obstetrical History Comments: G1 05/2009 40w1d NVD epidural 9lbs 2oz Female G2 02/2014 41w NVD epidural 7lbs 15oz Male G3 present SEE RECORDS Cigarettes: Former Smoker. [id number] Cigarette Comments: quit x August 2016 MEDICAL HISTORY Diabetes: No Blood Transfusion: No Pulmonary Disease (Asthma, TB): No Breast Disease: No Hypertension: No Candy Cutter Hand Surgery: No Heart Disease: No Hosp/Surgery: No Autoimmune Disorder: No Anesthetic Complications: No Kidney Disease: No Abnormal Pap Smear: No Neuro/Epilepsy: No Psychiatric Disorders: Yes Other Medical Diseases: No Hepatitis/Liver Disease: No Significant Family History: No Varicosities/Phlebitis: No Trauma/Violence : No Thyroid Dysfunction: No Medical History Comments: bipolar--never taken meds--only unstable at end of pregnancies (pt states that she was screaming at children and felt guilty about it) INFECTIOUS HISTORY Gonorrhea: No Genital Herpes: No Chlamydia: Yes Tuberculosis: No Syphilis: No Hepatitis: No HIV/AIDS Exposure: No Rash or Viral Illness: No HPV: No Infectious History Comments: hx chlamydia with last PHYSICAL EXAM General: Normal HEENT: Normal Neurologic: Normal Thyroid: Deferred Heart: Normal Lungs: Normal Breast: Deferred Back: Normal Abdomen: Normal Genitourinary Exam: Normal Extremities: Normal DTRs: Normal Pelvic Type: Adequate Vital Signs: Reviewed VAGINAL EXAM Dilatation: 7 Dilatation: 3 Dilatation: 3 Effacement: 80 Effacement: 60 Effacement: 60 Station: -1 Station: -1 Station: -1 Contraction Comments: 2-4 Contraction Comments: every 2 min Contraction Comments: irregular MEMBRANES Membranes: Ruptured Membranes: Ruptured Membranes: Ruptured Amniotic Fluid Color: Clear Amniotic Fluid Color: Clear FETUS A EGA: 39.4 Monitoring: External US FHR- Baseline: 135 Variability: Moderate 6-25bpm Accelerations: 15X15 Decelerations: None FHR Category: Category I Presentation: Vertex Admit Comment: Admit to L _ D For elective iol SVE as above PCN for gbs Pitocin Psych consult pt reported some difficulties with coping during the last have of . See record for compelet hx PLANS FOR LABOR AND DELIVERY Labor and Delivery: None Pain Management: Medications; Epidural Feeding Preference: Breast Benefit of Breast Feed Discussed: Yes Circumcision: Yes INFORMED CONSENT Informed Consent Obtained: Vaginal Delivery Informed Consent Obtained: Vaginal Delivery Assignment: Kenyetta Boswell MD Signature: with User ID: [email or web address] : with User ID: [email or web address]
[2016-10-24] MEDS: FAMOTIDINE 20 MG TABLET PO SCH (21:46)
[2016-10-24] MEDS: IBUPROFEN 800 MG TABLET PO SCH (21:46)
[2016-10-24] MEDS: ACETAMINOPHEN WITH CODEINE #3 TABLET PO PRN (23:03)
[2016-10-24] MEDS ORDERED: OXYTOCIN/NORMAL SALINE 20 UNIT/1,000 ML RTUINJ IV PRN (23:39)
[2016-10-24] MEDS ORDERED: CEFAZOLIN 2 GM/D5W RTU 2 GM/50 ML RTUPB IV ONE (23:45)
[2016-10-25] MEDS: IBUPROFEN 800 MG TABLET PO SCH ×3 (05:30→21:22)
[2016-10-25 07:34] LABS: MEAN CORPUSCULAR VOLUME 86 fl (80-97)
[2016-10-25 07:42] LABS: HEMATOCRIT 28.6 % (36.0-47.0); HGB HCT DIFFERENCE -0.1; MEAN CORPUSCULAR HEMOGLOBIN 28.5 pg (27.0-33.4); MEAN CORPUSCULAR HGB CONC 33.1 g/dL (32.0-36.0); RED BLOOD COUNT 3.32 10^6/uL (3.72-5.28); RED CELL DISTRIBUTION WIDTH 13.2 % (11.5-14.0); WHITE BLOOD COUNT 11.4 10^3/uL (4.0-10.5)
[2016-10-25 07:43] LABS: HEMOGLOBIN 9.5 g/dL (12.0-15.5)
[2016-10-25] MEDS: PRENATAL VITAMIN W-O CA NO5/FE FUMARATE/FA CAPSULE PO SCH (09:40)
[2016-10-25] MEDS: FAMOTIDINE 20 MG TABLET PO SCH ×2 (09:40→21:22)
[2016-10-25] MEDS: SENNOSIDES/DOCUSATE 8.6-50 MG 1 EACH TABLET PO SCH (09:41)
[2016-10-25] MEDS: FERROUS SULFATE 325 MG TABLET PO SCH ×2 (09:41→17:07)
[2016-10-25] MEDS: DOCUSATE SODIUM 100 MG CAPSULE PO SCH ×2 (10:00→17:07)
--- NOTE | 2016-10-25 18:07 | PSYCHOLOGICAL NOTE ---
Psych Note - Psych Note Psych Note: Psychiatric evaluation request for concern with patient's statements on harming her family. Patient states she has bipolar but has never been on medication. She states she can control her symptoms normally, until the last few weeks of . Patient has had 3 pregnancies; "as soon as they come out I'm peralta." Patient states she hardly yells at her children and never spanks. The last time she gave her mother was able to take her daughter the last few weeks but this time she was not able to take both kids since it was too much. Patient states she found herself "not just yelling but screaming" at her kids. She states she was afraid if it continued she would hit her kids so when she came to the doctor and told him she could not take it anymore. She requested to be induced. Patient states she has never hurt her children and never would want to, that is why she asked to be induced. Patient states she now feeling better and has a strong support system. Patient has both family and friends on both her and her 's sides. (clinician observed conversation between patient and female family member on the phone when first entering patient's room). 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 Patient is alert and orientated to person, place, time and circumstance. Mood is euthymic with congruent affect. Patient denies suicidal and homicidal ideation. Patient denies auditory and visual hallucinations; patient is not demonstrating any behaviour congruent to responding to internal stimuli. no delusions are noted. Thought process is organized and linear. Eye contact was well maintained. Attention and concentration is good. Insight, judgment and impulse control are good. Bipolar disorder per history provided by patient Impression/plan: patient is considered psychiatrically cleared for discharge. Patient does not meet IVC criteria per [place] GS 122C. Patient showed good insight and judgment in asking for assistance with induction by acknowledging her mental health was at risk. Patient verbalized needs; however, it is unclear patient's effectiveness since she was in distress at the time. Patient is no longer in crisis. Patient denies suicidal and homicidal ideation. Clinician observed the patient with her and notes no concerns. Patient agrees to ensure she takes appropriate steps to secure childcare center administrator in the future (for the last few weeks as needed) if she becomes again. Dr. Urrutia was consulted on the care and management of this patient.
[2016-10-25] MEDS: ACETAMINOPHEN WITH CODEINE #3 TABLET PO PRN (19:40)
[2016-10-26] MEDS: IBUPROFEN 800 MG TABLET PO SCH (05:43)
[2016-10-26] MEDS: DOCUSATE SODIUM 100 MG CAPSULE PO SCH (09:24)
[2016-10-26] MEDS: FERROUS SULFATE 325 MG TABLET PO SCH (09:25)
[2016-10-26] MEDS: PRENATAL VITAMIN W-O CA NO5/FE FUMARATE/FA CAPSULE PO SCH (09:25)
[2016-10-26] MEDS: SENNOSIDES/DOCUSATE 8.6-50 MG 1 EACH TABLET PO SCH (09:25)
[2016-10-26] MEDS: FAMOTIDINE 20 MG TABLET PO SCH (09:25)
--- NOTE | 2016-10-26 11:40 | PDOC DISCHARGE SUMMARY ---
Final Diagnosis Discharge Date: 10/26/16 - Final Diagnosis (1) Delivery normal Is this a current diagnosis for this admission?: Yes (2) Bipolar 1 disorder Is this a current diagnosis for this admission?: Yes Discharge Data - Discharge Medication Home Medications: Pnv No.95/Ferrous Fum/Folic AC [ Multivitamin Tablet] 1 tab PO DAILY 03/31 Docusate Sodium [Colace 100 mg Capsule] 100 mg PO BID #60 capsule 10/26/16 Ferrous Sulfate [Feosol 325 mg Tablet] 325 mg PO BID #60 tablet 10/26/16 Ibuprofen [Motrin 800 mg Tablet] 800 mg PO Q8 #60 tablet 10/26/16 Gestational Age: 38.4 Reason(s) for Admission: Induction of Labor, Group B Strep Positive Procedures: NST Intrapartum Procedure(s): Spontaneous Vaginal Delivery - Lenorah Data Baby 1 Male at 1 minute: 9 at 5 minutes: 9 Home with Mother: Yes Complications: No - Diagnosis Test Laboratory: Temp Pulse Resp BP Pulse Ox 97.6 F 74 18 106/59 L 100 10/26/16 08:07 10/26/16 08:07 10/26/16 08:07 10/26/16 08:07 10/26/16 08:07 10/24/16 10/24/16 10/25/16 11:35 11:42 07:09 RBC 4.12 3.32 L Hgb 11.8 L 9.5 L D Hct 35.2 L 28.6 L Urine Opiates Screen NEGATIVE - Discharge information/Instructions Discharge Activity: Activity As Tolerated, Pelvic Rest, No tub bath Discharge Diet: Regular Disposition: HOME, SELF-CARE Follow up with: [facility] in: 4, Weeks
[2016-10-26 12:30] VITALS: BP 125/76
== END 2016-10-26 13:10 | disposition home or self-care (01) | DRG 775 ==
LOC: LR 11:26 → 2S 20:15
PROVIDERS: ADMIT Student in an Organized Health Care Education/Training Program; ATTEND Student in an Organized Health Care Education/Training Program
PROC: 10E0XZZ Delivery of Products of Conception, External Approach (ICD-10-PCS; principal; 2016-10-24)
PROC: 0HQ9XZZ Repair Perineum Skin, External Approach (ICD-10-PCS; 2016-10-24)
PROC: 4A1HXCZ Monitoring of Products of Conception, Cardiac Rate, External Approach (ICD-10-PCS; 2016-10-24)
PROC: 10907ZC Drainage of Amniotic Fluid, Therapeutic from Products of Conception, Via Natural or Artificial Opening (ICD-10-PCS; 2016-10-24)
DX: O99.824 Streptococcus B carrier state complicating childbirth (principal); O70.0 First degree perineal laceration during delivery; Z37.0 Single live birth; O99.344 Other mental disorders complicating childbirth; F31.9 Bipolar disorder, unspecified; Z3A.38 38 weeks gestation of pregnancy; O99.334 Smoking (tobacco) complicating childbirth; F17.210 Nicotine dependence, cigarettes, uncomplicated; Z88.8 Allergy status to other drugs, medicaments and biological substances
CPT/HCPCS: 36415; 80307; 81005; 85025; 85027; 86592; 86850; 86900; 86901; 94760; J0690; J2540; J2590; J3490

== ENCOUNTER 2016-11-08 09:16 | Emergency (ER) | payer OTHER, MEDICAID ==
[2016-11-08] MEDS ORDERED: NORMAL SALINE 1000 ML 1,000 ML IV ONE (09:47)
--- NOTE | 2016-11-08 09:48 | ER Document Report ---
ED Medical Screen (RME) - General Chief Complaint: Abdominal Pain Stated Complaint: ABDOMINAL PAIN Time Seen by Provider: 11/08/16 09:46 Notes: Patient presents with vomiting and diarrhea. She states she gave 15 days ago and had trouble with heavy bleeding after the . She did not require transfusion however. She has no urinary complaints. She does have pain all up and down her spine as well. She also states that she got the most significant pain just above the umbilicus which is a sharp pain. All of the symptoms started last evening. TRAVEL OUTSIDE OF THE [place] IN LAST 30 DAYS: No - Related Data Allergies/Adverse Reactions: lavender (Lavandula angustifolia) Allergy (Verified 11/08/16 09:24) No Known Drug Allergies Allergy (Verified 11/08/16 09:24) Past Medical History - Social History Frequency of alcohol use: None Drug Abuse: None Pulmonary Medical History: Reports: Hx Asthma - only in childhood Renal/ Medical History: Denies: Hx Peritoneal Dialysis - Immunizations Immunizations up to date: Yes Hx Diphtheria, Pertussis, Tetanus Vaccination: Yes
[2016-11-08 10:37] LABS: ABSOLUTE LYMPHOCYTES (AUTO) 1.6 10^3/uL (0.5-4.7); ABSOLUTE MONOCYTES (AUTO) 0.6 10^3/uL (0.1-1.4); ABSOLUTE NEUT (AUTO) 8.8 10^3/uL (1.7-8.2); BASOPHILS % (AUTO) 0.3 % (0-2); EOSINOPHILS % (AUTO) 0.1 % (0-6); HEMATOCRIT 32.7 % (36.0-47.0); HEMOGLOBIN 11.3 g/dL (12.0-15.5); HGB HCT DIFFERENCE 1.2; LYMPHOCYTES % (AUTO) 14.3 % (13-45); MEAN CORPUSCULAR HEMOGLOBIN 29.2 pg (27.0-33.4); MEAN CORPUSCULAR HGB CONC 34.5 g/dL (32.0-36.0); MEAN CORPUSCULAR VOLUME 85 fl (80-97); MONOCYTES % (AUTO) 5.4 % (3-13); RED BLOOD COUNT 3.87 10^6/uL (3.72-5.28); RED CELL DISTRIBUTION WIDTH 12.8 % (11.5-14.0); SEGMENTED NEUTROPHILS % (AUTO) 79.9 % (42-78)
[2016-11-08] MEDS ORDERED: ONDANSETRON HCL INJ/PF 4 MG/2 ML SDV IV ONE (10:40)
[2016-11-08] MEDS ORDERED: LIDOCAINE 2% VISCOUS SOLN 20 ML UDCUP PO ONE (10:40)
[2016-11-08] MEDS ORDERED: METOCLOPRAMIDE HCL ORAL SOLN 10 MG/10 ML UDCUP PO ONE (10:40)
[2016-11-08] MEDS ORDERED: MAG HYDROX/AL HYDROX/SIMETH SUSP 30 ML UDCUP PO ONE (10:40)
--- NOTE | 2016-11-08 10:40 | ER Document Report ---
ED GI/ - General Chief Complaint: Abdominal Pain Stated Complaint: ABDOMINAL PAIN Time Seen by Provider: 11/08/16 09:46 Mode of Arrival: Ambulatory Information source: Patient TRAVEL OUTSIDE OF THE [place] IN LAST 30 DAYS: No - HPI Patient complains to provider of: Abdominal pain, Diarrhea, Vomiting Onset: Yesterday Timing/Duration: Sudden Quality of pain: Achy, Cramping, Sharp, Stabbing Severity at maximum: Moderate Severity in ED: Moderate Location: Epigastric Associated symptoms: Diarrhea, Nausea, Vomiting Exacerbated by: Denies Relieved by: Denies Similar symptoms previously: No Recently seen / treated by doctor: Yes Notes: 11/08/16 10:41 Patient is a 26-year-old female who is approximately 2 weeks , presenting to the emergency room with sharp stabbing epigastric pain with nausea , vomiting and diarrhea that started yesterday, she reports chills but no measured fever, no sick contacts, no questionable food intake, she does report a history of heartburn while , but has not been having problems with that since and not currently taking any medications, no reported abdominal surgeries previously, uneventful and delivery although she did have some hemorrhaging, she is lactose intolerant and yesterday morning it a bagel with cream cheese, however she does not believe her symptoms are related to this - Related Data Allergies/Adverse Reactions: lavender (Lavandula angustifolia) Allergy (Verified 11/08/16 09:24) No Known Drug Allergies Allergy (Verified 11/08/16 09:24) Past Medical History - General Information source: Patient - Social History Smoking Status: Never Smoker Frequency of alcohol use: None Drug Abuse: None Family History: Arthritis, DM, Hyperlipidemia, Hypertension, Malignancy Patient has suicidal ideation: No Patient has homicidal ideation: No Pulmonary Medical History: Reports: Hx Asthma - only in childhood Renal/ Medical History: Denies: Hx Peritoneal Dialysis - Immunizations Immunizations up to date: Yes Hx Diphtheria, Pertussis, Tetanus Vaccination: Yes Review of Systems - Review of Systems Constitutional: No symptoms reported EENT: No symptoms reported Cardiovascular: No symptoms reported Respiratory: No symptoms reported Gastrointestinal: See HPI Genitourinary: No symptoms reported Female Genitourinary: No symptoms reported Musculoskeletal: No symptoms reported Skin: No symptoms reported Hematologic/Lymphatic: No symptoms reported Neurological/Psychological: No symptoms reported -: Yes All other systems reviewed and negative Physical Exam - Vital signs Vitals: Pulse Resp BP Pulse Ox 73 18 106/49 L 99 11/08/16 11:52 11/08/16 11:52 11/08/16 11:52 11/08/16 11:52 Interpretation: Normal - General General appearance: Appears well, Alert - HEENT Head: Normocephalic, Atraumatic Eyes: Normal Pupils: PERRL - Respiratory Respiratory status: No respiratory distress Chest status: Nontender Breath sounds: Normal Chest palpation: Normal - Cardiovascular Rhythm: Regular Heart sounds: Normal auscultation Murmur: No - Abdominal Inspection: Normal Distension: No distension Bowel sounds: Normal Tenderness: Tender - Epigastric Organomegaly: No organomegaly - Back Back: Normal, Nontender - Extremities General upper extremity: Normal inspection, Nontender, Normal color, Normal ROM , Normal temperature General lower extremity: Normal inspection, Nontender, Normal color, Normal ROM , Normal temperature, Normal weight bearing. No: Celso's sign - Neurological Neuro grossly intact: Yes Cognition: Normal Orientation: AAOx4 Cristiano Coma Scale Eye Opening: Spontaneous Cristiano Coma Scale Verbal: Oriented Cristiano Coma Scale Motor: Obeys Commands Addison Coma Scale Total: 15 Speech: Normal Motor strength normal: LUE, RUE, LLE, RLE Sensory: Normal - Psychological Associated symptoms: Normal affect, Normal mood - Skin Skin Temperature: Warm Skin Moisture: Dry Skin Color: Normal Course - Re-evaluation Re-evalutation: 11/08/16 11:29 Patient resting comfortably, reports that pain has not returned since my last evaluation, labs were discussed with patient at bedside which are fairly unremarkable she was given IV fluids and a GI cocktail, symptoms are consistent with likely gastritis, she will be discharged with prescription for Zofran and Zantac, advised to follow-up with a primary care provider or return if symptoms worsen, patient acknowledges understanding and agreement with this plan - Vital Signs Vital signs: Temp Pulse Resp BP Pulse Ox 73 18 106/49 L 99 11/08/16 11:52 11/08/16 11:52 11/08/16 11:52 11/08/16 11:52 - Laboratory Result Diagrams: 11/08/16 10:29 11/08/16 10:29 Laboratory results interpreted by me: 07/27/17 07/27/17 07/27/17 10:29 10:29 10:30 WBC 11.0 H Hgb 11.3 L Hct 32.7 L Seg Neutrophils % 79.9 H Absolute Neutrophils 8.8 H Carbon Dioxide 20 L Glucose 115 H Urine Blood LARGE H Ur Leukocyte Esterase TRACE H Discharge - Discharge Clinical Impression: Epigastric abdominal pain Condition: Stable Disposition: HOME, SELF-CARE Instructions: Abdominal Pain ([facility]), Antinausea Medication ([facility]), Gastritis ([facility] ) Additional Instructions: Follow up with your primary care provider in one to 2 days. Return to the emergency room immediately if symptoms worsen or any additional concerns. Prescriptions: Ondansetron [Zofran Odt 4 mg Tablet] 1 - 2 tab PO Q4H #10 tab.rapdis Ranitidine HCl [Zantac 150 mg Tablet] 150 mg PO BID #60 tablet
[2016-11-08 10:54] LABS: ALANINE AMINOTRANSFERASE 17 U/L (9-52); ALBUMIN 3.9 g/dL (3.5-5.0); ALKALINE PHOSPHATASE 77 U/L (38-126); ANION GAP 14 (5-19); ASPARTATE AMINO TRANSFERASE 15 U/L (14-36); BILIRUBIN,DIRECT 0.3 mg/dL (0.0-0.4); BILIRUBIN,TOTAL 0.7 mg/dL (0.2-1.3); BLOOD UREA NITROGEN 12 mg/dL (7-20); CALCIUM 8.9 mg/dL (8.4-10.2); CARBON DIOXIDE 20 mmol/L (22-30); CHLORIDE 105 mmol/L (98-107); CREATININE RESULT 0.71 mg/dL (0.52-1.25); GLUCOSE 115 mg/dL (75-110); POTASSIUM 4.3 mmol/L (3.6-5.0); SODIUM 138.6 mmol/L (137-145)
[2016-11-08 11:03] LABS: APPEARANCE,URINE SLIGHTLY-CLOUDY; BILIRUBIN,URINE NEGATIVE (NEGATIVE); GLUCOSE, URINE NEGATIVE (NEGATIVE); KETONES,URINE NEGATIVE (NEGATIVE); LEUKOCYTE ESTERASE,URINE TRACE (NEGATIVE); NITRITE,URINE NEGATIVE (NEGATIVE); PROTEIN,URINE NEGATIVE (NEGATIVE); URINE SPECIFIC GRAVITY 1.018; UROBILINOGEN,URINE NEGATIVE mg/dL (<2.0)
[2016-11-08 18:49] VITALS: BP 109/65
== END 2016-11-08 11:52 | disposition home or self-care (01) ==
LOC: ER 09:16
DX: R10.13 Epigastric pain (principal); R19.7 Diarrhea, unspecified; R11.10 Vomiting, unspecified; O90.9 Complication of the puerperium, unspecified; R11.2 Nausea with vomiting, unspecified; R50.9 Fever, unspecified
CPT/HCPCS: 99284; 96374; 36415; 83690; 85025; 80053; 81001; J3490; J2405; J7030

== ENCOUNTER 2017-05-31 09:09 | Emergency (ER) | payer MEDICAID, OTHER ==
[2017-05-31] MEDS ORDERED: DIPH/PERTUSS(ACELL)/TETANUS VAC/PF 0.5 ML SYR (>=10YO) IM ONE (09:39)
--- NOTE | 2017-05-31 09:46 | ER Document Report ---
HPI - HPI Patient complains to provider of: Thumb laceration Onset: Just prior to arrival Onset/Duration: Sudden Quality of pain: Achy Pain Level: 4 Context: Patient reached down and accidentally cut her thumb on a vegetable slicer today. Patient with laceration to right thumb. Patient states she cleansed the area with water and immediately held pressure. Associated Symptoms: Other - Thumb laceration Exacerbated by: Denies Relieved by: Denies Similar symptoms previously: No Recently seen / treated by doctor: No - ROS ROS below otherwise negative: Yes Systems Reviewed and Negative: Yes All other systems reviewed and negative - CONSTITUTIONAL Constitutional: DENIES: Fever, Chills - REPRODUCTIVE Reproductive: DENIES: : - MUSCULOSKELETAL Musculoskeletal: REPORTS: Extremity pain - DERM Skin Color: Normal Skin Problems: Laceration Past Medical History - General Information source: Patient - Social History Smoking Status: Current Every Day Smoker Smoking Education Provided: Yes Frequency of alcohol use: None Drug Abuse: None Occupation: [employer] Lives with: Family Family History: Arthritis, DM, Hyperlipidemia, Hypertension, Malignancy - Medical History Medical History: Negative Pulmonary Medical History: Reports: Hx Asthma - only in childhood Renal/ Medical History: Denies: Hx Peritoneal Dialysis Past Surgical History: Reports: Hx Oral Surgery - Immunizations Immunizations up to date: Yes Hx Diphtheria, Pertussis, Tetanus Vaccination: Yes Vertical Provider Document - CONSTITUTIONAL Agree With Documented VS: Yes Exam Limitations: No Limitations General Appearance: WD/WN, No Apparent Distress - INFECTION CONTROL TRAVEL OUTSIDE OF THE [place] IN LAST 30 DAYS: No - HEENT HEENT: Atraumatic, Normocephalic - NECK Neck: Normal Inspection - RESPIRATORY Respiratory: No Respiratory Distress O2 Sat by Pulse Oximetry: 98 - CARDIOVASCULAR Pulses: Normal: Radial - MUSCULOSKELETAL/EXTREMETIES Musculoskeletal/Extremeties: MAEW, FROM - NEURO Level of Consciousness: Awake, Alert, Appropriate Motor/Sensory: No Motor Deficit - DERM Integumentary: Warm, Dry, Laceration - Laceration to palmar surface of distal right thumb, no active bleeding Course - Vital Signs Vital signs: Temp Pulse Resp BP Pulse Ox 98.5 F 91 16 109/60 98 05/31/17 09:18 05/31/17 09:18 05/31/17 09:18 05/31/17 09:18 05/31/17 09:18 Discharge - Discharge Clinical Impression: Laceration of thumb Qualifiers: Encounter type: initial encounter Damage to nail status: unspecified Foreign body presence: without foreign body Laterality: right Qualified Code(s): S61.011A - Laceration without foreign body of right thumb without damage to nail , initial encounter Condition: Stable Disposition: HOME, SELF-CARE Instructions: Non-Sutured Laceration ([facility]), Tetanus Immunization Given ([facility]) Additional Instructions: Return immediately for any new or worsening symptoms Followup with your primary care provider, call tomorrow to make a followup appointment Keep wound clean and covered. Forms: Smoking Cessation Education Referrals: [facility] [Provider Group] - Follow up as needed
[2017-05-31 10:53] VITALS: BP 108/55
== END 2017-05-31 10:53 | disposition home or self-care (01) ==
LOC: ER 09:09
DX: S61.011A Laceration without foreign body of right thumb without damage to nail, initial encounter (principal); W45.8XXA Other foreign body or object entering through skin, initial encounter; F17.200 Nicotine dependence, unspecified, uncomplicated
CPT/HCPCS: 90471; 90715; 99283

== ENCOUNTER 2018-11-15 09:42 | Emergency (ER) | payer OTHER ==
--- NOTE | 2018-11-15 09:59 | ER Document Report ---
ED Medical Screen (RME) - General Chief Complaint: Chest Pain Stated Complaint: CHEST PAIN Time Seen by Provider: 11/15/18 09:55 TRAVEL OUTSIDE OF THE [place] IN LAST 30 DAYS: No - HPI Notes: 11/15/18 09:58 Patient is a 28-year-old female with no significant past medical history aside from her 16-year-old son passing away in September who presents complaining of left- sided chest pain that radiates up into her left shoulder, left neck, and left arm. Patient states that the pain began at midnight and has been constant since then. Patient states that when she takes a deep breath she does feel worsening pain, but is otherwise able to ambulate without any dyspnea on exertion. Patient states that movement and pushing in the area makes the pain worse. + smoker. Denies any prolonged immobilization, distance travel, recent surgery/trauma, personal cancer history, hormone use, or previous DVT/PE. Denies IGNACIO, fever, neck pain, URI, n/v/d, Abd pain, dysuria, back pain, or rash. I have treated and performed a rapid initial assessment of this patient. A comprehensive ED assessment and evaluation of the patient, analysis of test results and completion of medical decision making process will be conducted by additional ED providers. PHYSICAL EXAMINATION: GENERAL: Well-appearing, well-nourished and in no acute distress. A&Ox4. Answers questions appropriately. Chest: + tenderness to palp. LUNGS: Breath sounds clear to auscultation bilaterally and equal. No wheezes rales or rhonchi. HEART: Regular rate and rhythm without murmurs, rubs, gallops. Extremities: No cyanosis, clubbing, or edema b/l. Celso negative bilaterally. No lower extremity asymmetry. NEUROLOGICAL: Normal speech, normal gait. PSYCH: Normal mood, normal affect. - Related Data Allergies/Adverse Reactions: lavender (Lavandula angustifolia) Allergy (Verified 11/15/18 09:43) No Known Drug Allergies Allergy (Verified 11/15/18 09:43) Past Medical History Pulmonary Medical History: Reports: Hx Asthma - only in childhood Renal/ Medical History: Denies: Hx Peritoneal Dialysis Past Surgical History: Reports: Hx Oral Surgery - Immunizations Immunizations up to date: Yes Hx Diphtheria, Pertussis, Tetanus Vaccination: Yes Physical Exam - Vital signs Vitals: Temp Pulse Resp BP Pulse Ox 98.5 F 93 16 127/72 H 97 11/15/18 09:46 11/15/18 09:46 11/15/18 09:46 11/15/18 09:46 11/15/18 09:46 Course - Vital Signs Vital signs: Temp Pulse Resp BP Pulse Ox 98.5 F 93 16 127/72 H 97 11/15/18 09:46 11/15/18 09:46 11/15/18 09:46 11/15/18 09:46 11/15/18 09:46
[2018-11-15 10:34] LABS: ABSOLUTE EOSINOPHILS # (AUTO) 0.1 10^3/uL (0.0-0.6); ABSOLUTE LYMPHOCYTES (AUTO) 2.3 10^3/uL (0.5-4.7); ABSOLUTE MONOCYTES (AUTO) 0.4 10^3/uL (0.1-1.4); BASOPHILS % (AUTO) 0.5 % (0-2); EOSINOPHILS % (AUTO) 2.1 % (0-6); HEMATOCRIT 41.8 % (36.0-47.0); HEMOGLOBIN 14.7 g/dL (12.0-15.5); LYMPHOCYTES % (AUTO) 33.3 % (13-45); MEAN CORPUSCULAR HEMOGLOBIN 29.9 pg (27.0-33.4); MEAN CORPUSCULAR HGB CONC 35.1 g/dL (32.0-36.0); MEAN CORPUSCULAR VOLUME 85 fl (80-97); MONOCYTES % (AUTO) 5.4 % (3-13); PLATELET COUNT 297 10^3/uL (150-450); RED CELL DISTRIBUTION WIDTH 12.6 % (11.5-14.0); SEGMENTED NEUTROPHILS % (AUTO) 58.7 % (42-78); TOTAL CELLS COUNTED % (AUTO) 100 %; WHITE BLOOD COUNT 6.8 10^3/uL (4.0-10.5)
[2018-11-15 10:40] LABS: APPEARANCE,URINE SLIGHTLY-CLOUDY; BILIRUBIN,URINE NEGATIVE (NEGATIVE); COLOR,URINE YELLOW; GLUCOSE, URINE NEGATIVE (NEGATIVE); KETONES,URINE NEGATIVE (NEGATIVE); LEUKOCYTE ESTERASE,URINE LARGE (NEGATIVE); NITRITE,URINE NEGATIVE (NEGATIVE); PROTEIN,URINE NEGATIVE (NEGATIVE); URINE SPECIFIC GRAVITY 1.016; UROBILINOGEN,URINE NEGATIVE mg/dL (<2.0)
[2018-11-15 10:50] LABS: ALBUMIN 4.6 g/dL (3.5-5.0); ALKALINE PHOSPHATASE 63 U/L (38-126); ANION GAP 9 (5-19); ASPARTATE AMINO TRANSFERASE 15 U/L (14-36); BILIRUBIN,DIRECT 0.2 mg/dL (0.0-0.4); BILIRUBIN,TOTAL 0.6 mg/dL (0.2-1.3); BLOOD UREA NITROGEN 11 mg/dL (7-20); CALCIUM 9.7 mg/dL (8.4-10.2); CARBON DIOXIDE 24 mmol/L (22-30); CHLORIDE 107 mmol/L (98-107); GLUCOSE 97 mg/dL (75-110); POTASSIUM 4.2 mmol/L (3.6-5.0); TOTAL PROTEIN 7.7 g/dL (6.3-8.2)
--- NOTE | 2018-11-15 11:12 | EKG REPORT ---
SEVERITY:- NORMAL ECG - SINUS RHYTHM : Confirmed by: Carmelita Nuñez MD 15-Nov-2018 11:11:51
--- NOTE | 2018-11-15 13:07 | RADIOLOGY REPORT (SQ) ---
EXAM DESCRIPTION: CHEST 2 VIEWS COMPLETED DATE/TIME: 11/15/2018 12:13 pm REASON FOR STUDY: CP COMPARISON: Not available. NUMBER OF VIEWS: One view. TECHNIQUE: Single frontal radiographic view of the chest acquired. LIMITATIONS: None. FINDINGS: LUNGS AND PLEURA: No opacities, masses or pneumothorax. No pleural effusion. MEDIASTINUM AND HILAR STRUCTURES: No masses. Contour normal. HEART AND VASCULAR STRUCTURES: Heart normal in size. Normal vasculature. BONES: No acute findings. HARDWARE: None in the chest. OTHER: No other significant finding. IMPRESSION: NO SIGNIFICANT RADIOGRAPHIC FINDING IN THE CHEST. TECHNICAL DOCUMENTATION: JOB ID: [id number] [employer]- All Rights Reserved Reading location - IP/workstation name: [email or web address]
[2018-11-15] MEDS ORDERED: METHOCARBAMOL 750 MG TABLET PO ONE (15:09)
--- NOTE | 2018-11-15 15:13 | ER Document Report ---
ED General - General Chief Complaint: Chest Pain Stated Complaint: CHEST PAIN Time Seen by Provider: 11/15/18 09:55 Notes: 28-year-old female presents emergency department complaining of sharp stabbing pain that started on the left side of her chest at midnight and radiated to her neck into her back and down into her left elbow. Its associated with tingling in her left hand but denies any numbness or weakness. States that she took Tylenol and it did not significantly change the pain. Does state that the pain decreases with pressure against her left side of her chest and her left neck. It worsens with deep breath and coughing. States her cough is not new. Denies nausea, vomiting, diaphoresis or diarrhea. Admits mild GERD. Only risk factor for DVT is smoking. No family history. TRAVEL OUTSIDE OF THE [place] IN LAST 30 DAYS: No - Related Data Allergies/Adverse Reactions: lavender (Lavandula angustifolia) Allergy (Verified 11/15/18 09:43) No Known Drug Allergies Allergy (Verified 11/15/18 09:43) Past Medical History - General Information source: Patient, Parent - Social History Smoking Status: Current Every Day Smoker Frequency of alcohol use: None Drug Abuse: None Family History: Arthritis, DM, Hyperlipidemia, Hypertension, Malignancy Patient has suicidal ideation: No Patient has homicidal ideation: No Pulmonary Medical History: Reports: Hx Asthma - only in childhood Renal/ Medical History: Denies: Hx Peritoneal Dialysis Past Surgical History: Reports: Hx Oral Surgery - Immunizations Immunizations up to date: Yes Hx Diphtheria, Pertussis, Tetanus Vaccination: Yes Review of Systems - Review of Systems Constitutional: No symptoms reported Cardiovascular: See HPI, Chest pain Respiratory: See HPI, Cough, Hurts to breathe Musculoskeletal: See HPI Neurological/Psychological: See HPI -: Yes All other systems reviewed and negative Physical Exam - Vital signs Vitals: Temp Pulse Resp BP Pulse Ox 98.5 F 93 16 127/72 H 97 11/15/18 09:46 11/15/18 09:46 11/15/18 09:46 11/15/18 09:46 11/15/18 09:46 Interpretation: Normal - Notes Notes: GENERAL: Alert, interacts well. No acute distress. HEAD: Normocephalic, atraumatic EYES: Pupils equal, round and reactive to light, extraocular movements intact. ENT: Oral mucosa moist, tongue midline. NECK: Full range of motion, supple, trachea midline. Tenderness to palpation and spasming along the trapezius muscle on the left side. Full range of motion of the left upper extremity. LUNGS: Clear to auscultation bilaterally, no wheezes, rales or rhonchi, no respiratory distress. HEART: Regular rate and rhythm, no murmurs, gallops, rubs. Mild left anterior upper chest wall tenderness to palpation. ABDOMEN: Soft, nontender, nondistended, bowel sounds present in all 4 quadrants. EXTREMITIES: Moves all 4 extremities spontaneously, no edema, radial and dorsalis pedis pulses 2/4 bilaterally. No cyanosis. NEUROLOGICAL: Alert and oriented x3, normal speech. Sensation intact. No weakness. PSYCH: Normal mood, normal affect. SKIN: Warm, Dry, normal turgor, no rashes or lesions noted. Course - Re-evaluation Re-evalutation: 11/15/18 15:11 CBC unremarkable, CMP unremarkable, cardiac enzymes negative after more than 12 hours worth of constant pain. Urinalysis shows large blood but she denies any dysuria, hematuria, flank pain or frequency. States that she always shows bacteria in her urine but they only ever treated when she is . Patient is agreeable to not treating it now. Patient is aware that if she develops symptoms of urinary tract infection she should come back. 11/15/18 15:11 I sent it for culture in case she should develop symptoms. Patient is aware that she can call and speak with our culture nurse if she develops symptoms and we will call her in a prescription based off of sensitivities over the next few days. Patient's left-sided neck and chest pain is completely reproducible and is consistent with a spasm of the left trapezius muscle. Patient will be treated with Robaxin and discharged to home. 11/15/18 15:13 - Vital Signs Vital signs: Temp Pulse Resp BP Pulse Ox 98.2 F 64 16 111/57 L 100 11/15/18 14:01 11/15/18 14:01 11/15/18 09:46 11/15/18 14:01 11/15/18 14:01 - Laboratory Result Diagrams: 11/15/18 10:17 11/15/18 10:17 Laboratory results interpreted by me: 11/15/18 10:17 Urine Blood MODERATE H Ur Leukocyte Esterase LARGE H - EKG Interpretation by Me Additional EKG results interpreted by me: 11/15/18 15:12 EKG shows sinus rhythm at a rate of 80, normal axis, normal intervals, no ST segment elevations or depressions, there are T wave inversions noted in lead III, this is isolated and nonspecific per my interpretation. Discharge - Discharge Clinical Impression: Left trapezius muscle spasm, Trapezius muscle spasm, Asymptomatic bacteriuria Condition: Stable Disposition: HOME, SELF-CARE Instructions: Muscle Relaxers ([facility]) Prescriptions: Methocarbamol [Robaxin 750 mg Tablet] 750 mg PO ASDIR PRN #40 tablet PRN Reason:
[2018-11-15 15:46] VITALS: BP 109/60
== END 2018-11-15 15:47 | disposition home or self-care (01) ==
LOC: ER 09:42
DX: M62.830 Muscle spasm of back (principal); R82.71 Bacteriuria; R07.9 Chest pain, unspecified; R20.0 Anesthesia of skin; F17.200 Nicotine dependence, unspecified, uncomplicated
CPT/HCPCS: 93005; 99284; 36415; 87086; 85025; 81025; 87088; 80053; 81001; 84484; 87186; 71046; 93010; J3490

== ENCOUNTER → 2019-06-26 | Outpatient (CLI) | payer OTHER ==
[2019-06-26 11:44] LABS: ABSOLUTE BASOPHILS # (AUTO) 0.1 10^3/uL (0.0-0.2); ABSOLUTE EOSINOPHILS # (AUTO) 0.1 10^3/uL (0.0-0.6); ABSOLUTE LYMPHOCYTES (AUTO) 1.1 10^3/uL (0.5-4.7); ABSOLUTE MONOCYTES (AUTO) 0.4 10^3/uL (0.1-1.4); ABSOLUTE NEUT (AUTO) 7.3 10^3/uL (1.7-8.2); BASOPHILS % (AUTO) 0.6 % (0-2); EOSINOPHILS % (AUTO) 0.6 % (0-6); HEMATOCRIT 33.8 % (36.0-47.0); HEMOGLOBIN 12.3 g/dL (12.0-15.5); LYMPHOCYTES % (AUTO) 12.3 % (13-45); MEAN CORPUSCULAR HEMOGLOBIN 31.4 pg (27.0-33.4); MEAN CORPUSCULAR HGB CONC 36.3 g/dL (32.0-36.0); MEAN CORPUSCULAR VOLUME 87 fl (80-97); MONOCYTES % (AUTO) 4.9 % (3-13); PLATELET COUNT 254 10^3/uL (150-450); RED BLOOD COUNT 3.91 10^6/uL (3.72-5.28); RED CELL DISTRIBUTION WIDTH 12.3 % (11.5-14.0); SEGMENTED NEUTROPHILS % (AUTO) 81.6 % (42-78); TOTAL CELLS COUNTED % (AUTO) 100 %; WHITE BLOOD COUNT 8.9 10^3/uL (4.0-10.5)
[2019-06-27 07:37] LABS: HEPATITIS C VIRUS AB <0.1 s/co ratio (0.0-0.9)
[2019-06-27 11:53] LABS: HEPATITS B SURFACE ANTIGEN Negative (Negative)
[2019-06-29 10:36] LABS: HGB A2 2.4 % (1.8-3.2); HGB SOLUBILITY RESULT Negative (Negative)
== END ==
LOC: OD 10:45
PROVIDERS: ATTEND Midwife
DX: Z34.82 Encounter for supervision of other normal pregnancy, second trimester (principal); Z13.29 Encounter for screening for other suspected endocrine disorder; Z11.3 Encounter for screening for infections with a predominantly sexual mode of transmission; Z11.51 Encounter for screening for human papillomavirus (HPV); Z12.4 Encounter for screening for malignant neoplasm of cervix
CPT/HCPCS: 36415; 83020; 84443; 85025; 86592; 86701; 86762; 86803; 86804; 86850; 86900; 86901; 87086; 87088; 87186; 87340; 87624; 88142

== ENCOUNTER 2019-08-09 10:54 | Inpatient (IN) | payer OTHER ==
--- NOTE | 2019-08-09 11:26 | ER Document Report ---
ED GI/ - General Chief Complaint: Pain With Urination Stated Complaint: URINARY PAIN Time Seen by Provider: 08/09/19 11:07 Primary Care Provider: PRATIK RUIZ CNM [Primary Care Provider] - Follow up as needed Notes: CHIEF COMPLAINT: Back pain and dysuria HPI: 29-year-old female who is 24 weeks and 6 days gestation presenting for bilateral back and flank pain with dysuria. Patient states she has been on 2 rounds of antibiotics already just recently finished Macrobid still having symptoms over the last 3 days states there were slight nausea no vomiting. No anterior abdominal pain or cramping. No vaginal bleeding or discharge. Did not call her [facility] prior to coming into the emergency department today. No fever ROS: See HPI - all other systems were reviewed and are otherwise negative Constitutional: no fever Eyes: no drainage, no blurred vision ENT: no runny nose, no sore throat Cardiovascular: no chest pain Resp: no SOB, no cough GI: no vomiting, no diarrhea, no abdominal pain, positive nausea : Positive dysuria, negative vaginal bleeding, negative vaginal discharge Integumentary: no rash Allergy: no hives Musculoskeletal: no extremity pain or swelling Neurological: no numbness/tingling, no weakness MEDICATIONS: I agree with the patient medications as charted by the RN. ALLERGIES: I agree with the allergies as charted by the RN. PAST MEDICAL HISTORY/PAST SURGICAL HISTORY: Reviewed and agree as charted by RN. SOCIAL HISTORY: Reviewed and agree as charted by RN. FAMILY HISTORY: No significant familial comorbid conditions directly related to patient complaint EXAM: Reviewed vital signs as charted by RN. CONSTITUTIONAL: Alert and oriented and responds appropriately to questions. Well-appearing; well-nourished HEAD: Normocephalic; atraumatic EYES: PERRL; Conjunctivae clear, sclerae non-icteric ENT: normal nose; no rhinorrhea; moist mucous membranes NECK: Supple without meningismus CARD: RRR; no murmurs, no clicks, no rubs, no gallops; symmetric distal pulses RESP: Normal chest excursion without splinting or tachypnea; breath sounds clear and equal bilaterally; no wheezes, no rhonchi, no rales, pulse oximetry 98% on room air not hypoxic ABD/GI: Normal bowel sounds; non-distended; soft, nontender, no rebound, no guarding; uterine enlargement palpable. BACK: The back appears normal and is mildly-tender to palpation, there is mild bilateral CVA tenderness EXT: Normal ROM in all joints; non-tender to palpation; no cyanosis, no effusions, no edema SKIN: Normal color for age and race; warm; dry; good turgor; no acute lesions noted NEURO: Moves all extremities equally; Motor and sensory function intact PSYCH: The patient's mood and manner are appropriate. Grooming and personal hygiene are appropriate. MDM: 29-year-old female presenting for bilateral flank pain UTI symptoms states she has been on antibiotics twice already through her [facility]. States she is approximately 25 weeks gestation. No anterior abdominal pain. Will obtain urinalysis, screening lab work, plan for ultrasound of the kidneys to evaluate for hydronephrosis. We will plan to discuss with [facility] regarding management given her gestational age TRAVEL OUTSIDE OF THE [place] IN LAST 30 DAYS: No - Related Data Allergies/Adverse Reactions: lavender (Lavandula angustifolia) Allergy (Verified 08/09/19 10:57) No Known Drug Allergies Allergy (Verified 08/09/19 10:57) Past Medical History - Social History Smoking Status: Current Some Day Smoker Chew tobacco use (# tins/day): No Drug Abuse: None Family History: Arthritis, DM, Hyperlipidemia, Hypertension, Malignancy Patient has suicidal ideation: No Patient has homicidal ideation: No Pulmonary Medical History: Reports: Hx Asthma - only in childhood Renal/ Medical History: Denies: Hx Peritoneal Dialysis Past Surgical History: Reports: Hx Oral Surgery - Immunizations Immunizations up to date: Yes Hx Diphtheria, Pertussis, Tetanus Vaccination: Yes Physical Exam - Vital signs Vitals: Temp Pulse Resp BP Pulse Ox 98.9 F 113 H 16 104/60 98 08/09/19 10:59 08/09/19 10:59 08/09/19 10:59 08/09/19 10:59 08/09/19 10:59 Course - Re-evaluation Re-evalutation: 08/09/19 11:[address] Annie Ontiveros, OB. Patient does have CVA tenderness. She does have positive nitrates in the urine, greater than 182 WBCs. Likely pyelonephritis with . She requests 2 g of Rocephin IV. She is in agreement with the renal ultrasound. She does request the patient be admitted to the OB service floor. I did discuss this with the patient who is in agreement - Vital Signs Vital signs: Temp Pulse Resp BP Pulse Ox 98.9 F 113 H 16 104/60 98 08/09/19 11:13 08/09/19 10:59 08/09/19 10:59 08/09/19 10:59 08/09/19 10:59 - Laboratory Laboratory results interpreted by me: 08/09/19 11:10 Urine Protein 30 H Urine Ketones 20 H Urine Blood MODERATE H Urine Nitrite POSITIVE H Ur Leukocyte Esterase LARGE H Urine HCG, Qual POSITIVE H Discharge - Discharge Clinical Impression: Pyelonephritis affecting Qualifiers: Trimester: second trimester Qualified Code(s): O23.02 - Infections of kidney in , second trimester Condition: Stable Disposition: ADMITTED INPATIENT Admitting Provider: [facility] - Dr. Annie Ontiveros Unit Admitted: Post Referrals: PRATIK RUIZ CNM [Primary Care Provider] - Follow up as needed
[2019-08-09 11:29] LABS: APPEARANCE,URINE CLOUDY; BILIRUBIN,URINE NEGATIVE (NEGATIVE); COLOR,URINE YELLOW; GLUCOSE, URINE NEGATIVE (NEGATIVE); KETONES,URINE 20 mg/dL (NEGATIVE); LEUKOCYTE ESTERASE,URINE LARGE (NEGATIVE); NITRITE,URINE POSITIVE (NEGATIVE); PROTEIN,URINE 30 mg/dL (NEGATIVE); URINE SPECIFIC GRAVITY 1.013; UROBILINOGEN,URINE NEGATIVE mg/dL (<2.0)
[2019-08-09] MEDS ORDERED: CEFTRIAXONE INJ 1000 MG VIAL IV ONE (11:37)
[2019-08-09] MEDS ORDERED: RINGERS SOLUTION,LACTATED 1,000 ML IV ONE (11:39)
[2019-08-09] MEDS ORDERED: NORMAL SALINE 1000 ML 1,000 ML IV ONE (11:40)
[2019-08-09 12:17] LABS: URINE AMPHETAMINES SCREEN NEGATIVE; URINE BARBITURATES SCREEN NEGATIVE; URINE BENZODIAZEPINES SCREEN NEGATIVE; URINE COCAINE SCREEN NEGATIVE; URINE MARIJUANA (THC) SCREEN NEGATIVE; URINE METHADONE SCREEN NEGATIVE; URINE PHENCYCLIDINE SCREEN NEGATIVE
[2019-08-09 12:22] LABS: ABSOLUTE BASOPHILS # (AUTO) 0.1 10^3/uL (0.0-0.2); ABSOLUTE LYMPHOCYTES (AUTO) 1.2 10^3/uL (0.5-4.7); ABSOLUTE MONOCYTES (AUTO) 0.8 10^3/uL (0.1-1.4); ABSOLUTE NEUT (AUTO) 14.4 10^3/uL (1.7-8.2); BASOPHILS % (AUTO) 0.7 % (0-2); EOSINOPHILS % (AUTO) 0.1 % (0-6); HEMATOCRIT 30.4 % (36.0-47.0); LYMPHOCYTES % (AUTO) 7.1 % (13-45); MEAN CORPUSCULAR HEMOGLOBIN 30.8 pg (27.0-33.4); MEAN CORPUSCULAR VOLUME 85 fl (80-97); MONOCYTES % (AUTO) 4.9 % (3-13); PLATELET COUNT 308 10^3/uL (150-450); RED BLOOD COUNT 3.56 10^6/uL (3.72-5.28); RED CELL DISTRIBUTION WIDTH 12.3 % (11.5-14.0); SEGMENTED NEUTROPHILS % (AUTO) 87.2 % (42-78); TOTAL CELLS COUNTED % (AUTO) 100 %; WHITE BLOOD COUNT 16.5 10^3/uL (4.0-10.5)
[2019-08-09 12:27] LABS: ALBUMIN 3.6 g/dL (3.5-5.0); ALKALINE PHOSPHATASE 99 U/L (38-126); ANION GAP 8 (5-19); ASPARTATE AMINO TRANSFERASE 18 U/L (14-36); BILIRUBIN,TOTAL 0.7 mg/dL (0.2-1.3); BLOOD UREA NITROGEN 7 mg/dL (7-20); CALCIUM 8.7 mg/dL (8.4-10.2); CARBON DIOXIDE 21 mmol/L (22-30); CHLORIDE 99 mmol/L (98-107); GLUCOSE 105 mg/dL (75-110); POTASSIUM 3.7 mmol/L (3.6-5.0); TOTAL PROTEIN 6.8 g/dL (6.3-8.2)
--- NOTE | 2019-08-09 12:30 | RADIOLOGY REPORT (SQ) ---
EXAM DESCRIPTION: U/S RETROPERITON (RENAL/AORTA) IMAGES COMPLETED DATE/TIME: 08/09/2019 12:15 pm REASON FOR STUDY: eval for hydronephrosis COMPARISON: None. TECHNIQUE: Dynamic and static grayscale images acquired of the kidneys and bladder and recorded on P ACS. Additional selected color Doppler and spectral images recorded. LIMITATIONS: None. FINDINGS: RIGHT KIDNEY: Normal size. Normal echogenicity. No solid or suspicious masses. Hydroneph rosis. 1.1 cm calculus in the lower pole. No calcifications. LEFT KIDNEY: Normal size. Normal echogenicity. No solid or suspicious masses. No hydronephrosis. No calcifications. BLADDER: No masses. OTHER FINDINGS: No other significant finding. IMPRESSION: HYDRONEPHROSIS OF THE RIGHT KIDNEY, GREATER THAN EXPECTED FOR THE PATIENT'S CURRENT STAG E OF . THERE IS A 1.1 CM CALCULUS IN THE LOWER POLE OF THE RIGHT KIDNEY. COMMENT: The degree of renal pelvocalyceal dilation is correlated with the patient's current stage o f . TECHNICAL DOCUMENTATION: JOB ID: [id number] 2010 [email or web address]- All Rights Reserved Reading location - IP/workstation name: [email or web address]
[2019-08-09] MEDS: HYDROCODONE/ACETAMINOPHEN 5-325 MG TABLET PO PRN ×2 (14:07→20:17)
[2019-08-09] MEDS: RINGERS SOLUTION,LACTATED 1,000 ML IV PRN ×2 (14:58→22:31)
[2019-08-09] MEDS: ACETAMINOPHEN 325 MG TABLET PO PRN ×2 (16:29→22:43)
--- NOTE | 2019-08-09 17:50 | PDOC H&P ---
History of Present Illness Admission Date/PCP: 08/09/19 11:53 PRATIK RUIZ CNM Patient complains of: dysuria and back pain History of Present Illness: PEE BERNARDO is a 29 yo 0-year-old female who is 24 weeks and 6 days gestation presenting for bilateral back/flank pain with dysuria. Patient states she has been on 2 rounds of antibiotics already just recently finished Macrobid still having symptoms over the last 3 days. Pain increasing in intensity. States there were slight nausea no vomiting. No anterior abdominal pain or cramping. No vaginal bleeding or discharge. No fever or chills. ROS: See HPI - all other systems were reviewed and are otherwise negative Constitutional: no fever Eyes: no drainage, no blurred vision ENT: no runny nose, no sore throat Cardiovascular: no chest pain Resp: no SOB, no cough GI: no vomiting, no diarrhea, no abdominal pain, positive nausea : Positive dysuria, negative vaginal bleeding, negative vaginal discharge Integumentary: no rash Allergy: no hives Musculoskeletal: no extremity pain or swelling Neurological: no numbness/tingling, no weakness Past Medical History Pulmonary Medical History: Reports: Asthma - only in childhood Past Surgical History Past Surgical History: Reports: None Social History Smoking Status: Current Some Day Smoker Electronic Cigarette use?: No Family History Family History: Arthritis, DM, Hyperlipidemia, Hypertension, Malignancy Parental Family History Reviewed: Yes Children Family History Reviewed: Yes Sibling(s) Family History Reviewed.: Yes Medication/Allergy Home Medications: No Home Medications 08/09/19 Allergies/Adverse Reactions: lavender (Lavandula angustifolia) Allergy (Verified 08/09/19 10:57) No Known Drug Allergies Allergy (Verified 08/09/19 10:57) Physical Exam - Physical Exam Vital Signs: Temp Pulse Resp BP Pulse Ox 101.2 F H 104 H 16 103/55 L 100 08/09/19 15:24 08/09/19 15:24 08/09/19 15:24 08/09/19 15:24 08/09/19 15:24 Intake & Output 08/08/19 08/09/19 08/10/19 06:59 06:59 06:59 Intake Total 1000 Balance 1000 Weight 91 kg General appearance: PRESENT: no acute distress Respiratory exam: PRESENT: clear to auscultation melissa Cardiovascular exam: PRESENT: RRR, +S1, +S2 GI/Abdominal exam: PRESENT: soft, other - Right CVA tenderness on exam Extremities exam: PRESENT: full ROM. ABSENT: calf tenderness, clubbing, pedal edema Psychiatric exam: PRESENT: appropriate affect, normal mood Skin exam: PRESENT: dry, warm Result Laboratory Results: 08/09/19 11:52 08/09/19 11:52 08/09/19 08/09/19 08/09/19 11:10 11:52 11:52 WBC 16.5 H RBC 3.56 L Hgb 11.0 L Hct 30.4 L MCV 85 MCH 30.8 MCHC 36.0 RDW 12.3 Plt Count 308 Seg Neutrophils % 87.2 H Sodium 127.9 L Potassium 3.7 Chloride 99 Carbon Dioxide 21 L Anion Gap 8 BUN 7 Creatinine 0.51 L Est GFR ( Amer) > 60 Glucose 105 Calcium 8.7 Total Bilirubin 0.7 AST 18 Alkaline Phosphatase 99 Total Protein 6.8 Albumin 3.6 Urine Color YELLOW Urine Appearance CLOUDY Urine pH 6.0 Ur Specific [place] 1.013 Urine Protein 30 H Urine Glucose (UA) NEGATIVE Urine Ketones 20 H Urine Blood MODERATE H Urine Nitrite POSITIVE H Ur Leukocyte Esterase LARGE H Urine WBC (Auto) >182 Urine RBC (Auto) 21 Impressions: Renal Ultrasound 08/09/19 11:26 IMPRESSION: HYDRONEPHROSIS OF THE RIGHT KIDNEY, GREATER THAN EXPECTED FOR THE PATIENT'S CURRENT STAGE OF . THERE IS A 1.1 CM CALCULUS IN THE LOWER POLE OF THE RIGHT KIDNEY. Assessment & Plan - Diagnosis (1) Kidney stone on right side Is this a current diagnosis for this admission?: Yes (2) Hydronephrosis of right kidney Is this a current diagnosis for this admission?: Yes (3) Pyelonephritis affecting Qualifiers: Trimester: second trimester Qualified Code(s): O23.02 - Infections of kidney in , second trimester (4) Right flank pain Is this a current diagnosis for this admission?: Yes - Time Critical Time spent with patient: 15-24 minutes - Plan Summary Plan Summary: 29 yo at 24.6 wks EGA with right flank pain, pyelonephritis, right hydronephrosis -Admit patient to antepartum OB area -VS Q 4 hrs -OOB at [facility] -Regular diet 1) Pyelonephritis /urolithiasis -IVFs LR at 125 cc/hr after bolus of 1000cc -Rocephin 2 gms given IV in ED. Continue Rocephin 1 gm IV Q 12 hrs. -UA nitrate pos. UC sent -US showed 1.1 cm stone right kidney with right hydronephrosis greater than expected for 25 weeks EGA . -WIll consult urology through call center for recommendations -WBC in ED 16.5, Cr low normal -Repeat CBC in am -Strain urine -Tylenol PRN fever -[place] 5mg PO PRN pain-no greater than 4 gms Tylenol in 24 hrs 2) IUP at 24.6 wks EGA -PNV daily -FHT daily -SCDs while in bed
[2019-08-09] MEDS ORDERED: GLUCAGON,HUMAN RECOMB 1 MG INJ SUBCUT PRN (19:04)
[2019-08-09] MEDS ORDERED: DEXTROSE 40% GEL 15 GM TUBE PO PRN ×2 (19:04)
[2019-08-09] MEDS ORDERED: DEXTROSE 50%-WATER 25 GM/50 ML DISP.SYRIN IV PRN ×2 (19:04)
[2019-08-09] MEDS ORDERED: CEFTRIAXONE 1 GM/D5W RTU 1 GM/50 ML RTUPB IV SCH (22:00)
[2019-08-10] MEDS: HYDROCODONE/ACETAMINOPHEN 5-325 MG TABLET PO PRN ×2 (04:20→13:24)
[2019-08-10 06:47] LABS: ABSOLUTE LYMPHOCYTES (AUTO) 1.7 10^3/uL (0.5-4.7); ABSOLUTE MONOCYTES (AUTO) 1.1 10^3/uL (0.1-1.4); ABSOLUTE NEUT (AUTO) 12.1 10^3/uL (1.7-8.2); BASOPHILS % (AUTO) 0.2 % (0-2); EOSINOPHILS % (AUTO) 0.2 % (0-6); HEMOGLOBIN 9.4 g/dL (12.0-15.5); LYMPHOCYTES % (AUTO) 11.3 % (13-45); MEAN CORPUSCULAR HEMOGLOBIN 30.8 pg (27.0-33.4); MEAN CORPUSCULAR HGB CONC 36.3 g/dL (32.0-36.0); MEAN CORPUSCULAR VOLUME 85 fl (80-97); MONOCYTES % (AUTO) 7.3 % (3-13); PLATELET COUNT 253 10^3/uL (150-450); RED BLOOD COUNT 3.06 10^6/uL (3.72-5.28); RED CELL DISTRIBUTION WIDTH 12.2 % (11.5-14.0); TOTAL CELLS COUNTED % (AUTO) 100 %
[2019-08-10 07:09] LABS: ALBUMIN 2.9 g/dL (3.5-5.0); ALKALINE PHOSPHATASE 85 U/L (38-126); ANION GAP 7 (5-19); ASPARTATE AMINO TRANSFERASE 14 U/L (14-36); BILIRUBIN,TOTAL 0.3 mg/dL (0.2-1.3); BLOOD UREA NITROGEN 3 mg/dL (7-20); CALCIUM 8.3 mg/dL (8.4-10.2); CARBON DIOXIDE 22 mmol/L (22-30); CHLORIDE 102 mmol/L (98-107); GLUCOSE 103 mg/dL (75-110); POTASSIUM 3.3 mmol/L (3.6-5.0); TOTAL PROTEIN 5.8 g/dL (6.3-8.2)
[2019-08-10] MEDS: RINGERS SOLUTION,LACTATED 1,000 ML IV PRN (07:32)
--- NOTE | 2019-08-10 11:11 | RADIOLOGY REPORT (SQ) ---
EXAM DESCRIPTION: U/S RETROPERITON (RENAL/AORTA) IMAGES COMPLETED DATE/TIME: 08/10/2019 10:25 am REASON FOR STUDY: re-eval hydronephrosis COMPARISON: Ultrasound from 08/09/2019. TECHNIQUE: Dynamic and static grayscale images acquired of the kidneys and bladder and recorded on P ACS. Additional selected color Doppler and spectral images recorded. LIMITATIONS: None. FINDINGS: RIGHT KIDNEY: The right kidney measures 14.5 cm in length. There is moderate to severe hy dronephrosis. There is no calcification or mass. LEFT KIDNEY: The left kidney measures 13.2 cm in length. There is mild to moderate hydronephrosis. There is no calcification or mass. BLADDER: The urinary bladder is nondistended. OTHER FINDINGS: No other finding. IMPRESSION: 1. Unchanged moderate to severe right-sided hydronephrosis. 2. Increased vuii-zn-sgagswar left-sided hydronephrosis. TECHNICAL DOCUMENTATION: JOB ID: [id number] 2010 [employer]- All Rights Reserved Reading location - IP/workstation name: [email or web address]
--- NOTE | 2019-08-10 13:31 | PDOC PROGRESS REPORT ---
Subjective Progress Note for:: 08/10/19 Subjective:: denies fevers/chills, currently NPO, reports unchanged Right flank pain Reason For Visit: PYELONEPHRITIS AFFECTING Physical Exam - Physical Exam Vital Signs: Temp Pulse Resp BP Pulse Ox 98.5 F 96 18 102/55 L 100 08/10/19 11:09 08/10/19 11:09 08/10/19 11:09 08/10/19 11:09 08/10/19 11:09 Intake & Output 08/09/19 08/10/19 08/11/19 06:59 06:59 06:59 Intake Total 4069 25 Output Total 1500 Balance 2569 25 Weight 94.4 kg General appearance: PRESENT: no acute distress, well-developed, well-nourished Respiratory exam: PRESENT: clear to auscultation melissa, symmetrical, unlabored Cardiovascular exam: PRESENT: RRR. ABSENT: diastolic murmur, rubs, systolic murmur Vascular exam: PRESENT: normal capillary refill GI/Abdominal exam: PRESENT: normal bowel sounds, soft, other - Right and Left CVAT. ABSENT: distended, guarding, mass, organolmegaly, rebound, tenderness Rectal exam: PRESENT: deferred Neurological exam: PRESENT: alert, awake, oriented to person, oriented to place, oriented to time, oriented to situation, CN II-XII grossly intact. ABSENT: motor sensory deficit Skin exam: PRESENT: dry, intact, warm. ABSENT: cyanosis, rash Result Laboratory Results: 08/10/19 06:26 08/10/19 06:26 08/10/19 08/10/19 06:26 06:26 WBC 15.0 H RBC 3.06 L Hgb 9.4 L Hct 26.0 L MCV 85 MCH 30.8 MCHC 36.3 H RDW 12.2 Plt Count 253 Seg Neutrophils % 81.0 H Sodium 130.6 L Potassium 3.3 L Chloride 102 Carbon Dioxide 22 Anion Gap 7 BUN 3 L Creatinine 0.40 L Est GFR ( Amer) > 60 Glucose 103 Calcium 8.3 L Total Bilirubin 0.3 AST 14 Alkaline Phosphatase 85 Total Protein 5.8 L Albumin 2.9 L Impressions: Renal Ultrasound 08/10/19 09:50 IMPRESSION: 1. Unchanged moderate to severe right-sided hydronephrosis. 2. Increased ofgy-jl-lumrlzne left-sided hydronephrosis. Status: Imported from PACS Assessment & Plan - Diagnosis (1) Hydronephrosis, left Is this a current diagnosis for this admission?: Yes Plan: Now with developing moderate hydronephorsis on the Left. Pt now with left CVAT. (2) Hydronephrosis of right kidney Is this a current diagnosis for this admission?: Yes Plan: stable appearing right hydronephrosis. continued pain requiring norco D/w Dr. Menjivar (urology [facility]) regarding concern patient is not improving and appears to have developed left hydronephrosis. He will accept consultation but desires patient to be primary with OB. Since there is no urology here and patient appears to be not improving in regards to hydroneprhosis and pain will transfer to have consultation with Dr. Menjivar. WBC count is also still elevated. However, Cr is wnl. Dr. Schaefer ([facility]) has accepted patient. (3) Kidney stone on right side Is this a current diagnosis for this admission?: Yes Plan: 1.1cm appears consistent from US yesterday to today (4) Pyelonephritis affecting Qualifiers: Trimester: second trimester Qualified Code(s): O23.02 - Infections of kidney in , second trimester Is this a current diagnosis for this admission?: Yes Plan: Cont Rocephin 1gram Q 12 hours Urine culture prelim Gram negative rods Blood cultures negative (5) Bipolar 1 disorder Is this a current diagnosis for this admission?: Yes Plan: cont meds - Time Time Spent with patient: 15-24 minutes Medications reviewed and adjusted accordingly: Yes Anticipated discharge: [facility] Within: when bed available - Inpatient Certification Based on my medical assessment, after consideration of the patient's comorbidities, presenting symptoms, or acuity I expect that the services needed warrant INPATIENT care.: Yes I certify that my determination is in accordance with my understanding of Medicare's requirements for reasonable and necessary INPATIENT services [42 CFR 412.3e].: Yes Medical Necessity: Need for Pain Control, Need for IV Antibiotics Post Hospital Care: D/C [facility] Documentation - Plan Summary Plan Summary: to [facility] due to possible need for stent
--- NOTE | 2019-08-10 14:24 | PDOC TRANSFER SUMMARY ---
General Admission Date/PCP: 08/09/19 11:53 PRATIK RUIZ CNM Admission Date: 08/09/19 Transfer Date: 08/10/19 Accepting Facility: [facility] Accepting Physician: Dt. Schaefer Resuscitation Status: Full Code - Transfer Diagnosis (1) Hydronephrosis, left Is this a current diagnosis for this admission?: Yes Diagnosis Summary: Now with developing moderate hydronephorsis on the Left. Pt now with left CVAT. (2) Hydronephrosis of right kidney Is this a current diagnosis for this admission?: Yes Diagnosis Summary: stable appearing right hydronephrosis. continued pain requiring norco D/w Dr. Menjivar (urology [facility]) regarding concern patient is not improving and appears to have developed left hydronephrosis. He will accept consultation but desires patient to be primary with OB. Since there is no urology here and patient appears to be not improving in regards to hydroneprhosis and pain will transfer to have consultation with Dr. Menjivar. WBC count is also still elevated. However, Cr is wnl. Dr. Schaefer ([facility]) has accepted patient. (3) Kidney stone on right side Is this a current diagnosis for this admission?: Yes Diagnosis Summary: 1.1cm appears consistent from US yesterday to today (4) Pyelonephritis affecting Is this a current diagnosis for this admission?: Yes Diagnosis Summary: Cont Rocephin 1gram Q 12 hours Urine culture prelim Gram negative rods Blood cultures negative (5) Bipolar 1 disorder Is this a current diagnosis for this admission?: Yes Diagnosis Summary: cont meds - Transfer Medications Home Medications: No Home Medications 08/09/19 Transfer Medications: Current Medications Acetaminophen (Tylenol 325 Mg Tablet) 650 mg PO Q6HP PRN PRN Reason: FOR FEVER >100.9 Stop: 09/08/19 15:39 Last Admin: 08/09/19 22:43 Dose: 650 mg Documented by: Hydrocodone Bitart/Acetaminophen ([place] 5-325 Mg Tablet) 1 tab PO Q6HP PRN PRN Reason: FOR PAIN SCALE 4-5 Stop: 08/16/19 13:47 Last Admin: 08/10/19 13:24 Dose: 1 tab Documented by: Ceftriaxone Sodium/Dextrose (Rocephin Rtu 1 Gm/D5w 50 Ml Premix) 1 gm in 50 mls @ 100 mls/hr IV QHS ROSALIO Stop: 08/16/19 21:59 Last Infusion: 08/10/19 08:40 Dose: Infused Documented by: - Allergies Allergies/Adverse Reactions: lavender (Lavandula angustifolia) Allergy (Verified 08/09/19 10:57) No Known Drug Allergies Allergy (Verified 08/09/19 10:57) - Diet/Activity Discharge Diet: As Tolerated Discharge Activity: Activity As Tolerated Hospital Course Hospital Course: 29 yo female who was admitted yesterday at 24 weeks and 6 days gestation presenting for bilateral back/flank pain with dysuria. Patient stated she has been on 2 rounds of antibiotics already just recently finished Macrobid still having symptoms over the last 3 days. Pain increasing in intensity. States there were slight nausea no vomiting. No anterior abdominal pain or cramping. No vaginal bleeding or discharge. No fever or chills. She was admitted and Renal US obtained due to significant discomfort. Today patient still in pain with use of norco for pain control and unable to be comfortable unless completely on left side. She denies fevers/chills/n/v currently. Physical Exam Vital Signs: Temp Pulse Resp BP Pulse Ox 98.5 F 96 18 102/55 L 100 08/10/19 11:09 08/10/19 11:09 08/10/19 11:09 08/10/19 11:09 08/10/19 11:09 Intake & Output 08/09/19 08/10/19 08/11/19 06:59 06:59 06:59 Intake Total 4069 25 Output Total 1500 Balance 2569 25 Weight 94.4 kg General appearance: PRESENT: no acute distress, well-developed, well-nourished Respiratory exam: PRESENT: clear to auscultation melissa. ABSENT: rales, rhonchi, wheezes Cardiovascular exam: PRESENT: RRR. ABSENT: diastolic murmur, rubs, systolic murmur GI/Abdominal exam: PRESENT: normal bowel sounds, soft, other - Bilateral CVAT. ABSENT: distended, guarding, mass, organolmegaly, rebound, tenderness Rectal exam: PRESENT: deferred Extremities exam: PRESENT: full ROM. ABSENT: calf tenderness, clubbing, pedal edema Neurological exam: PRESENT: alert, awake, oriented to person, oriented to place, oriented to time, oriented to situation, CN II-XII grossly intact. ABSENT: motor sensory deficit Psychiatric exam: PRESENT: appropriate affect, normal mood. ABSENT: homicidal ideation, suicidal ideation Skin exam: PRESENT: dry, intact, warm. ABSENT: cyanosis, rash Results Laboratory Results: 08/10/19 06:26 08/10/19 06:26 08/10/19 08/10/19 06:26 06:26 WBC 15.0 H RBC 3.06 L Hgb 9.4 L Hct 26.0 L MCV 85 MCH 30.8 MCHC 36.3 H RDW 12.2 Plt Count 253 Seg Neutrophils % 81.0 H Sodium 130.6 L Potassium 3.3 L Chloride 102 Carbon Dioxide 22 Anion Gap 7 BUN 3 L Creatinine 0.40 L Est GFR ( Amer) > 60 Glucose 103 Calcium 8.3 L Total Bilirubin 0.3 AST 14 Alkaline Phosphatase 85 Total Protein 5.8 L Albumin 2.9 L Impressions: Renal Ultrasound 08/10/19 09:50 IMPRESSION: 1. Unchanged moderate to severe right-sided hydronephrosis. 2. Increased [id number] left-sided hydronephrosis. Status: Imported from PACS Plan Discharge Plan: Transfer to [facility] for eval and consultation with Urology and possible stent. Will keep patient NPO for transport and evaluation.
[2019-08-10 16:37] VITALS: BP 108/58
== END 2019-08-10 16:35 | disposition short-term general hospital (02) | DRG 832 ==
LOC: ER 10:54 → EH 11:53 → 2S 12:25
PROVIDERS: ADMIT Obstetrics & Gynecology; ATTEND Obstetrics & Gynecology
DX: O23.02 Infections of kidney in pregnancy, second trimester (principal); N13.6 Pyonephrosis; O99.342 Other mental disorders complicating pregnancy, second trimester; F31.9 Bipolar disorder, unspecified; O99.332 Smoking (tobacco) complicating pregnancy, second trimester; F17.200 Nicotine dependence, unspecified, uncomplicated; Z3A.24 24 weeks gestation of pregnancy; Z79.899 Other long term (current) drug therapy
CPT/HCPCS: 36415; 76770; 80053; 80307; 81001; 81025; 85025; 87040; 87086; 87088; 87186; 99284; J0696; J7030; J7120

== ENCOUNTER 2019-11-21 05:57 | Inpatient (IN) | payer OTHER ==
[2019-11-21] MEDS ORDERED: OXYTOCIN/0.9 % SODIUM CHLORIDE 30 UNIT/500 ML RTUINJ IV PRN ×2 (06:33→17:41)
[2019-11-21 06:59] LABS: ABSOLUTE EOSINOPHILS # (AUTO) 0.1 10^3/uL (0.0-0.6); ABSOLUTE LYMPHOCYTES (AUTO) 2.1 10^3/uL (0.5-4.7); ABSOLUTE MONOCYTES (AUTO) 0.5 10^3/uL (0.1-1.4); ABSOLUTE NEUT (AUTO) 6.5 10^3/uL (1.7-8.2); BASOPHILS % (AUTO) 0.4 % (0-2); EOSINOPHILS % (AUTO) 0.9 % (0-6); HEMATOCRIT 32.6 % (36.0-47.0); HEMOGLOBIN 11.5 g/dL (12.0-15.5); LYMPHOCYTES % (AUTO) 22.7 % (13-45); MEAN CORPUSCULAR HEMOGLOBIN 29.6 pg (27.0-33.4); MEAN CORPUSCULAR HGB CONC 35.4 g/dL (32.0-36.0); MEAN CORPUSCULAR VOLUME 84 fl (80-97); MONOCYTES % (AUTO) 5.9 % (3-13); PLATELET COUNT 251 10^3/uL (150-450); SEGMENTED NEUTROPHILS % (AUTO) 70.1 % (42-78); TOTAL CELLS COUNTED % (AUTO) 100 %; WHITE BLOOD COUNT 9.3 10^3/uL (4.0-10.5)
[2019-11-21 07:02] LABS: AMORPHOUS SEDIMENT,URINE TRACE /HPF; APPEARANCE,URINE CLOUDY; BILIRUBIN,URINE NEGATIVE (NEGATIVE); COLOR,URINE YELLOW; GLUCOSE, URINE NEGATIVE (NEGATIVE); KETONES,URINE NEGATIVE (NEGATIVE); LEUKOCYTE ESTERASE,URINE SMALL (NEGATIVE); NITRITE,URINE NEGATIVE (NEGATIVE); PROTEIN,URINE NEGATIVE (NEGATIVE); URINE SPECIFIC GRAVITY 1.011; UROBILINOGEN,URINE NEGATIVE mg/dL (<2.0)
[2019-11-21] MEDS: RINGERS SOLUTION,LACTATED 1,000 ML IV PRN ×3 (07:34→13:08)
[2019-11-21] MEDS ORDERED: OXYTOCIN 10 UNIT/ML VIAL ONE (07:43)
[2019-11-21] MEDS ORDERED: MISOPROSTOL 0.2 MG TABLET ONE (07:43)
[2019-11-21] MEDS ORDERED: LIDOCAINE 1% INJ-PF (10 MG/ML) 30 ML SDV ONE (07:43)
[2019-11-21] MEDS ORDERED: OXYTOCIN/0.9 % SODIUM CHLORIDE 30 UNIT/500 ML RTUINJ ONE ×2 (07:44→20:21)
[2019-11-21 07:46] LABS: URINE AMPHETAMINES SCREEN NEGATIVE; URINE BARBITURATES SCREEN NEGATIVE; URINE BENZODIAZEPINES SCREEN NEGATIVE; URINE COCAINE SCREEN NEGATIVE; URINE MARIJUANA (THC) SCREEN NEGATIVE; URINE METHADONE SCREEN NEGATIVE; URINE PHENCYCLIDINE SCREEN NEGATIVE
--- NOTE | 2019-11-21 08:34 | Warning Signs in Babies ---
VOD Warning Signs Datetime Report Generated by CPN: 11/21/2019 08:34 VOD#[id number] -Warning Signs in Babies: Viewed with Parent(s)/Family (11/21/2019 06:09:Patsy Larsen RN)
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
--- NOTE | 2019-11-21 08:50 | Warning Signs in Babies ---
VOD Warning Signs Datetime Report Generated by CPN: 11/21/2019 08:49 VOD#[id number] -Warning Signs in Babies: Viewed with Parent(s)/Family (11/21/2019 08:05:Patsy Larsen RN)
[2019-11-21] MEDS ORDERED: FENTANYL/BUPIVACAINE/NS/PF 300 MCG/150 ML RTUINJ EPI ONE (12:17)
[2019-11-21] MEDS ORDERED: EPHEDRINE SULFATE INJ 50 MG/1 ML AMPULE ONE (12:17)
[2019-11-21] MEDS ORDERED: ROPIVACAINE HCL 0.2% INJ/PF (2 MG/ML) 20 ML SDV ONE (12:18)
[2019-11-21] MEDS ORDERED: LIDOCAINE 2% INJ-PF (20 MG/ML) 10 ML AMPUL ONE (15:14)
[2019-11-21] MEDS ORDERED: FENTANYL CITRATE INJ/PF 100 MCG/2 ML AMPUL ONE (16:03)
[2019-11-21] MEDS ORDERED: PSEUDOEPHEDRINE HCL 30 MG TABLET PO PRN (17:41)
[2019-11-21] MEDS ORDERED: ACETAMINOPHEN WITH CODEINE #3 TABLET PO PRN ×2 (17:41)
[2019-11-21] MEDS ORDERED: ACETAMINOPHEN 650 MG SUPP.RECT PR PRN (17:41)
[2019-11-21] MEDS ORDERED: BENZOCAINE/MENTHOL AEROSOL SPRAY 56 ML TOP PRN (17:41)
[2019-11-21] MEDS ORDERED: ACETAMINOPHEN 325 MG TABLET PO PRN (17:41)
[2019-11-21] MEDS ORDERED: PROMETHAZINE HCL 25 MG SUPP.RECT PR PRN (17:41)
[2019-11-21] MEDS ORDERED: PROMETHAZINE HCL INJ 25 MG/1 ML VIAL IV PRN (17:41)
[2019-11-21] MEDS ORDERED: ZOLPIDEM TARTRATE 5 MG TABLET PO PRN (17:41)
[2019-11-21] MEDS ORDERED: DIPHENHYDRAMINE HCL 25 MG CAPSULE PO PRN (17:41)
[2019-11-21] MEDS ORDERED: DIPH/PERTUSS(ACELL)/TETANUS VAC/PF 0.5 ML SYR (>=10YO) IM PRN (17:41)
[2019-11-21] MEDS ORDERED: NA PHOS,M-B/NA PHOS,DI-BA (ADULT) 133 ML ENEMA PR PRN (17:41)
[2019-11-21] MEDS ORDERED: GLYCERIN/WITCH HAZEL LEAF 1 EACH MED..WIPE TP PRN (17:41)
[2019-11-21] MEDS ORDERED: DIBUCAINE 1% OINTMENT 28 GM TP PRN (17:41)
[2019-11-21] MEDS ORDERED: MEASLES,MUMPS&RUBELLA VACC/PF 0.5 ML VIAL SUBCUT PRN (17:41)
[2019-11-21] MEDS ORDERED: PROMETHAZINE HCL 25 MG TABLET PO PRN (17:41)
[2019-11-21] MEDS ORDERED: MAGNESIUM HYDROXIDE SUSP 30 ML UDCUP PO PRN (17:41)
[2019-11-21] MEDS ORDERED: IBUPROFEN 800 MG TABLET ONE (18:05)
[2019-11-21] MEDS: IBUPROFEN 800 MG TABLET PO SCH ×2 (18:09→22:47)
[2019-11-21] MEDS ORDERED: DOCUSATE SODIUM 100 MG CAPSULE ONE (18:20)
[2019-11-21] MEDS ORDERED: FERROUS SULFATE 325 MG TABLET PO ONE (18:21)
[2019-11-21] MEDS: DOCUSATE SODIUM 100 MG CAPSULE PO SCH (18:28)
[2019-11-21] MEDS: FERROUS SULFATE 325 MG TABLET PO SCH (18:28)
--- NOTE | 2019-11-21 19:33 | Delivery Summary ---
Del Sum A-C Datetime Report Generated by CPN: 11/21/2019 19:33 DELIVERY PERSONNEL DELIVERY PERSONNEL: [id number] Delivery Doctor:: Annie Ontiveros MD Labor and Delivery Nurse:: Diego Ramey RNwell blower Nurse:: Razia Ruiz RN Neon Technician/MASKING MACHINE OPERATOR: Donna Browne CST Neon Technician/MASKING MACHINE OPERATOR: Ankush Troy CST Additional Personnel: : Patsy Larsen RN MATERNAL INFORMATION Delivery Anesthesia: Epidural Medications After Delivery: Pitocin 30 Units in 500ml NS/D5W Estimated Blood Loss (ml): 350 Delivery QBL: 450 Maternal Complications: None Provider Comments: Called to patients room as she was complete and plus 2 station. Patient pushed through one contraction and the head delivered easily . A double nucal cord x2 was noted and too tight to reduce. Unable to deliver through due to increased tension so cord was doubly clamped and cut. Shoulders and rest of the body delivered quickly there after. vigorous. Both Mother and stable. LABOR SUMMARY EDC: 11/23/2019 00:00 No. Babies in Womb: 1 Attempted: No Labor Anesthesia: Epidural LABOR INFORMATION Reason for Induction: Other Reason for Induction- Other: Elective Onset of Labor: 11/21/2019 15:25 Complete Dilatation: 11/21/2019 16:57 Oxytocin: Induction Group B Beta Strep: Negative Antibiotics # of Doses: 0 Steroids Given: None Reason Steroids Not Administered: Not Applicable MEMBRANES Membranes Rupture Method: Artificial Rupture of Membranes: 11/21/2019 13:23 Length of Rupture (hr): 3.77 Amniotic Fluid Color: Clear Amniotic Fluid Amount: Scant Amniotic Fluid Odor: None STAGES OF LABOR Stage 1 hr: 1 Stage 1 min: 32 Stage 2 hr: 0 Stage 2 min: 12 Stage 3 hr: 0 Stage 3 min: 3 Total Time in Labor hr: 1 Total Time in Labor min: 47 VAGINAL DELIVERY Episiotomy: None Laceration #1: Perineal Laceration Extension #1: First Degree Laceration Repair: Yes Laceration Repair Note: with 3-0 chromic Sponge Count Correct: Yes Sharps Count Correct: Yes CSECTION DELIVERY Primary Indication: N/A Secondary Indication: N/A CSection Incidence: N/A Labor: N/A Elective: N/A BABY A INFORMATION Delivery Date/Time: 11/21/2019 17:09 Method of Delivery: Vaginal Nurse Controlled Delivery: No Born in Route : No : N/A Forceps: N/A Vacuum Extraction: N/A Shoulder Dystocia : No PRESENTATION/POSITION BABY A Presentation: Cephalic Cephalic Presentation: Vertex Vertex Position: Left Occipital Anterior Breech Presentation: N/A PLACENTA INFORMATION BABY A Placenta Delivery Time : 11/21/2019 17:12 Placenta Method of Delivery: Spontaneous Placenta Status: Delivered SCORES BABY A Heart Rate 1 min: >100 bpm Resp Effort 1 min: Good Cry Reflex Irritability 1 min: Cough or Sneeze or Pulls Away Muscle Tone 1 min: Active Motion Color 1 min: Blue/Pale Resuscitation Effort 1 min: Tactile Stimulation SCORE 1 MIN: 8 Heart Rate 5 min: >100 bpm Resp Effort 5 min: Good Cry Reflex Irritability 5 min: Cough or Sneeze or Pulls Away Muscle Tone 5 min: Active Motion Color 5 min: Blue/Pale Resuscitation Effort 5 min: N/A SCORE 5 MIN: 8 INFANT INFORMATION BABY A Gestational Age at Delivery: 39.5 Gestational Status: Full Term- 39- 40.6 Weeks Outcome : Liveborn Infant Condition : Stable Infant Sex: Male IDENTIFICATION BABY A Verification Date/Time: 11/21/2019 17:43 ID Band Number: [id number] Mother's Name Verified: Yes Infant RN Verifying : Marni Ramey, RN Additional Verifying Personnel: SSuzanne Larsen RN WEIGHT/LENGTH BABY A Infant Birthweight (gm): 3932 Weight (lb): 8 Infant Weight (oz): 11 Length (in): 20.75 Infant Length (cm): 52.71 CORD INFORMATION BABY A No. Cord Vessels: 3 Nuchal Cord : Around Neck x2, Tight Cord Blood Taken: Yes-For Eval (Mom's Blood Type - or O+) Suction: None ASSESSMENT BABY A Infant Complications: None Physical Findings at Delivery: Other Physical Findings- Other: see initial nursery note Respirations: Appears Normal Skin to Skin: Yes Exhaust Machine Operator/ALS Called : No Care By: B. Baidy, RN BABY B INFORMATION : N/A SIGNATURES Signature: with User ID: [email or web address] : with User ID: [email or web address]
[2019-11-21] MEDS ORDERED: METHYLERGONOVINE MALEATE INJ/PF 0.2 MG/1 ML AMPULE ONE (20:11)
[2019-11-21 21:34] LABS: ABSOLUTE BASOPHILS # (AUTO) 0.1 10^3/uL (0.0-0.2); ABSOLUTE LYMPHOCYTES (AUTO) 2.2 10^3/uL (0.5-4.7); ABSOLUTE MONOCYTES (AUTO) 0.7 10^3/uL (0.1-1.4); BASOPHILS % (AUTO) 0.3 % (0-2); EOSINOPHILS % (AUTO) 0.1 % (0-6); HEMATOCRIT 33.1 % (36.0-47.0); HEMOGLOBIN 11.4 g/dL (12.0-15.5); LYMPHOCYTES % (AUTO) 12.3 % (13-45); MEAN CORPUSCULAR HEMOGLOBIN 29.3 pg (27.0-33.4); MEAN CORPUSCULAR HGB CONC 34.5 g/dL (32.0-36.0); MEAN CORPUSCULAR VOLUME 85 fl (80-97); MONOCYTES % (AUTO) 3.8 % (3-13); PLATELET COUNT 280 10^3/uL (150-450); RED CELL DISTRIBUTION WIDTH 13.3 % (11.5-14.0); SEGMENTED NEUTROPHILS % (AUTO) 83.5 % (42-78); TOTAL CELLS COUNTED % (AUTO) 100 %; WHITE BLOOD COUNT 17.9 10^3/uL (4.0-10.5)
[2019-11-21] MEDS: FAMOTIDINE 20 MG TABLET PO SCH (22:47)
[2019-11-22] MEDS ORDERED: METHYLERGONOVINE MALEATE 0.2 MG TABLET PO SCH
[2019-11-22] MEDS ORDERED: METHYLERGONOVINE MALEATE 0.2 MG TABLET ONE ×2 (01:23→08:37)
[2019-11-22] MEDS: METHYLERGONOVINE MALEATE 0.2 MG TABLET PO SCH ×4 (01:26→19:57)
[2019-11-22] MEDS: IBUPROFEN 800 MG TABLET PO SCH ×3 (05:13→22:21)
[2019-11-22 07:51] LABS: HEMATOCRIT 26.4 % (36.0-47.0); MEAN CORPUSCULAR HEMOGLOBIN 29.5 pg (27.0-33.4); MEAN CORPUSCULAR HGB CONC 35.5 g/dL (32.0-36.0); MEAN CORPUSCULAR VOLUME 83 fl (80-97); PLATELET COUNT 202 10^3/uL (150-450); RED BLOOD COUNT 3.17 10^6/uL (3.72-5.28); WHITE BLOOD COUNT 11.7 10^3/uL (4.0-10.5)
[2019-11-22 08:18] LABS: HEMOGLOBIN 9.3 g/dL (12.0-15.5)
[2019-11-22] MEDS: FERROUS SULFATE 325 MG TABLET PO SCH ×2 (09:16→17:27)
[2019-11-22] MEDS: SENNOSIDES/DOCUSATE 8.6-50 MG 1 EACH TABLET PO SCH (09:16)
[2019-11-22] MEDS: FAMOTIDINE 20 MG TABLET PO SCH ×2 (09:16→22:19)
[2019-11-22] MEDS: PRENATAL VITAMIN W DHA CAPSULE PO SCH (09:16)
[2019-11-22] MEDS: DOCUSATE SODIUM 100 MG CAPSULE PO SCH ×2 (09:16→17:27)
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
[2019-11-23] MEDS: METHYLERGONOVINE MALEATE 0.2 MG TABLET PO SCH ×2 (02:39→08:48)
[2019-11-23] MEDS: IBUPROFEN 800 MG TABLET PO SCH (05:35)
[2019-11-23] MEDS ORDERED: METHYLERGONOVINE MALEATE 0.2 MG TABLET ONE (08:46)
--- NOTE | 2019-11-23 08:58 | PDOC PROGRESS REPORT ---
Subjective-OB Progress Note for:: 11/23/19 Subjective: Ready for discharge. Physical Exam (OB) Vital Signs: Temp Pulse Resp BP Pulse Ox 98.2 F 74 18 115/60 99 11/22/19 19:00 11/22/19 19:00 11/22/19 19:00 11/22/19 19:00 11/22/19 19:00 Intake & Output 11/22/19 11/23/19 11/24/19 06:59 06:59 06:59 Intake Total 696 Balance 696 - PIH/Pre-Eclampsia DTR's: 1 + Clonus: Negative Headache: Absent Epigastric Pain: No Visual Changes: No - Maternal Morbidity Maternal Morbidity (serious complications experinced by the mother associated with labor and delivery: None of the above - Lochia Lochia Amount: Scant < 10 ml Lochia Color: Rubra/Red - Abdomen Description: Tender, Soft, Round Hernia Present: No Bowel Sounds: Normoactive Flatus Presence: Present Stool: Yes Fundal Description: Firm, Midline Fundal Height: u/u - u/2 Objective-Diagnostic Laboratory: 11/22/19 07:37 Assessment and Plan(PN) - Time Spent with Patient Time with patient: 15-25 minutes Medications reviewed and adjusted accordingly: Yes - Disposition Anticipated Discharge Disposition: Home, Self Care Anticipated Discharge Timeframe: within 24 hours
[2019-11-23] MEDS: PRENATAL VITAMIN W DHA CAPSULE PO SCH (09:05)
[2019-11-23] MEDS: FERROUS SULFATE 325 MG TABLET PO SCH (09:05)
[2019-11-23] MEDS: SENNOSIDES/DOCUSATE 8.6-50 MG 1 EACH TABLET PO SCH (09:05)
[2019-11-23] MEDS: FAMOTIDINE 20 MG TABLET PO SCH (09:05)
[2019-11-23] MEDS: DOCUSATE SODIUM 100 MG CAPSULE PO SCH (09:05)
--- NOTE | 2019-11-23 09:07 | PDOC DISCHARGE SUMMARY ---
Impression - Admit/DC Date/PCP Admission Date/Primary Care Provider: 11/21/19 05:57 PRATIK RUIZ CNM Discharge Date: 11/23/19 - Discharge Diagnosis (1) Acute blood loss anemia Is this a current diagnosis for this admission?: Yes (2) Depression with anxiety Is this a current diagnosis for this admission?: Yes (3) (normal spontaneous vaginal delivery) Is this a current diagnosis for this admission?: Yes (4) PPH ( hemorrhage) Is this a current diagnosis for this admission?: Yes (5) Is this a current diagnosis for this admission?: Yes - Additional Information Resuscitation Status: Full Code Discharge Diet: Regular Discharge Activity: Activity As Tolerated, Balance Activity w/Rest, Non- Ambulatory Child, Pelvic Rest, Slowly Increase Activity, No tub bath Referrals: PRATIK RUIZ CNM [Primary Care Provider] - MILLIE TRIMBLE MD [ACTIVE STAFF] - Prescriptions: Ferrous Sulfate [Feosol 325 mg Tablet] 325 mg PO BID #60 tablet Home Medications: Nitrofurantoin Monohyd/M-Cryst [Macrobid 100 mg Capsule] 100 mg PO BID 11/21/19 Ferrous Sulfate [Feosol 325 mg Tablet] 325 mg PO BID #60 tablet 11/23/19 HPI Gestational Age: 39 wks Reason(s) for Admission: Onset of Labor Procedures: Ultrasound Intrapartum Procedure(s): Spontaneous Vaginal Delivery Complication(s): Laceration-Perineal Laceration-Degree: 1st Hospital Course Maternal Morbidity (serious complications experinced by the mother associated with labor and delivery: None of the above Results Laboratory Results: WBC 11.7 10^3/uL (4.0-10.5) H 11/22/19 07:37 RBC 3.17 10^6/uL (3.72-5.28) L 11/22/19 07:37 Hgb 9.3 g/dL (12.0-15.5) L D 11/22/19 07:37 Hct 26.4 % (36.0-47.0) L 11/22/19 07:37 MCV 83 fl (80-97) 11/22/19 07:37 MCH 29.5 pg (27.0-33.4) 11/22/19 07:37 MCHC 35.5 g/dL (32.0-36.0) 11/22/19 07:37 RDW 13.0 % (11.5-14.0) 11/22/19 07:37 Plt Count 202 10^3/uL (150-450) 11/22/19 07:37 Lymph % (Auto) 12.3 % (13-45) L 11/21/19 21:24 [place] % (Auto) 3.8 % (3-13) 11/21/19 21:24 Eos % (Auto) 0.1 % (0-6) 11/21/19 21:24 Baso % (Auto) 0.3 % (0-2) 11/21/19 21:24 Absolute Neuts (auto) 15.0 10^3/uL (1.7-8.2) H 11/21/19 21:24 Absolute Lymphs (auto) 2.2 10^3/uL (0.5-4.7) 11/21/19 21:24 Absolute Monos (auto) 0.7 10^3/uL (0.1-1.4) 11/21/19 21:24 Absolute Eos (auto) 0.0 10^3/uL (0.0-0.6) 11/21/19 21:24 Absolute Basos (auto) 0.1 10^3/uL (0.0-0.2) 11/21/19 21:24 Seg Neutrophils % 83.5 % (42-78) H 11/21/19 21:24 Urine Color YELLOW 11/21/19 06:12 Urine Appearance CLOUDY 11/21/19 06:12 Urine pH 6.0 (5.0-9.0) 11/21/19 06:12 Ur Specific [place] 1.011 11/21/19 06:12 Urine Protein NEGATIVE mg/dL (NEGATIVE) 11/21/19 06:12 Urine Glucose (UA) NEGATIVE mg/dL (NEGATIVE) 11/21/19 06:12 Urine Ketones NEGATIVE mg/dL (NEGATIVE) 11/21/19 06:12 Urine Blood SMALL (NEGATIVE) H 11/21/19 06:12 Urine Nitrite NEGATIVE (NEGATIVE) 11/21/19 06:12 Urine Bilirubin NEGATIVE (NEGATIVE) 11/21/19 06:12 Urine Urobilinogen NEGATIVE mg/dL (<2.0) 11/21/19 06:12 Ur Leukocyte Esterase SMALL (NEGATIVE) H 11/21/19 06:12 Urine WBC (Auto) 9 /HPF 11/21/19 06:12 Urine RBC (Auto) 4 /HPF 11/21/19 06:12 Urine Bacteria (Auto) 2+ /HPF 11/21/19 06:12 Squamous Epi Cells Auto 7 /HPF 11/21/19 06:12 Amorphous Sediment Auto TRACE /HPF 11/21/19 06:12 Urine Mucus (Auto) FEW /LPF 11/21/19 06:12 Urine Ascorbic Acid NEGATIVE (NEGATIVE) 11/21/19 06:12 Urine Opiates Screen NEGATIVE 11/21/19 06:12 Urine Methadone Screen NEGATIVE 11/21/19 06:12 Ur Barbiturates Screen NEGATIVE 11/21/19 06:12 Ur Phencyclidine Scrn NEGATIVE 11/21/19 06:12 Ur Amphetamines Screen NEGATIVE 11/21/19 06:12 U Benzodiazepines Scrn NEGATIVE 11/21/19 06:12 Urine Cocaine Screen NEGATIVE 11/21/19 06:12 U Marijuana (THC) Screen NEGATIVE 11/21/19 06:12 RPR NONREACTIVE (NONREACTIVE) 11/21/19 06:44 Blood Type A POSITIVE 11/21/19 06:44 Antibody Screen NEGATIVE 11/21/19 06:44 Plan Time Spent: Less than 30 Minutes
[2019-11-23 09:39] VITALS: BP 117/66
== END 2019-11-23 11:45 | disposition home or self-care (01) | DRG 806 ==
LOC: LR 05:57 → 2S 21:39
PROVIDERS: ADMIT Student in an Organized Health Care Education/Training Program; ATTEND Student in an Organized Health Care Education/Training Program
PROC: 10E0XZZ Delivery of Products of Conception, External Approach (ICD-10-PCS; principal; 2019-11-21)
PROC: 0HQ9XZZ Repair Perineum Skin, External Approach (ICD-10-PCS; 2019-11-21)
PROC: 3E033VJ Introduction of Other Hormone into Peripheral Vein, Percutaneous Approach (ICD-10-PCS; 2019-11-21)
PROC: 10907ZC Drainage of Amniotic Fluid, Therapeutic from Products of Conception, Via Natural or Artificial Opening (ICD-10-PCS; 2019-11-21)
DX: O69.1XX0 Labor and delivery complicated by cord around neck, with compression, not applicable or unspecified (principal); D62 Acute posthemorrhagic anemia; Z37.0 Single live birth; O72.2 Delayed and secondary postpartum hemorrhage; O90.81 Anemia of the puerperium; Z11.59 Encounter for screening for other viral diseases; O99.344 Other mental disorders complicating childbirth; F32.9 Major depressive disorder, single episode, unspecified; F41.9 Anxiety disorder, unspecified; O70.0 First degree perineal laceration during delivery; F31.9 Bipolar disorder, unspecified; Z3A.39 39 weeks gestation of pregnancy
CPT/HCPCS: 1967; 36415; 80307; 81001; 85025; 85027; 86592; 86850; 86900; 86901; 94760; C1758; J2210; J2590; J2795; J3010; J3490